=== PATIENT | female | born 2000 | race Caucasian/White ===

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

== ENCOUNTER 2018-04-01 16:56 | Emergency (ER) | payer OTHER ==
--- NOTE | 2018-04-01 17:47 | ER Document Report ---
ED Medical Screen (RME) - General Chief Complaint: Abdominal Pain Stated Complaint: ABDOMINAL PAIN Time Seen by Provider: 04/01/18 17:38 Notes: Patient is complaining of pain in the left lower quadrant of her abdomen since Tuesday evening. It radiates to the right side somewhat but primarily in the left lower quadrant. It is constant.. This pain is similar to what the patient had about a year and a half ago when she had a ruptured ovarian cyst. She has been nauseated but not vomiting. No change in bowels. No UTI symptoms. Has not had any fever. Only other symptoms is a headache for the past 2 days. Patient is an insulin-dependent diabetic for about 9 years. Hypothyroid. TRAVEL OUTSIDE OF THE U.S[place] IN LAST 30 DAYS: No - Related Data Allergies/Adverse Reactions: amoxicillin Allergy (Verified 04/01/18 16:56) azithromycin [From Zithromax] Allergy (Verified 04/01/18 16:56) clavulanic acid [From Augmentin] Allergy (Verified 04/01/18 16:56) cepfrozil Allergy (Uncoded 04/01/18 16:56) Past Medical History - Social History Chew tobacco use (# tins/day): No Frequency of alcohol use: None Drug Abuse: None Endocrine Medical History: Reports: Hx Diabetes Mellitus Type 1, Hx Hypothyroidism Renal/ Medical History: Denies: Hx Peritoneal Dialysis - Immunizations Immunizations up to date: Yes Physical Exam - Vital signs Vitals: Temp Pulse Resp BP Pulse Ox 98.6 F 85 18 139/58 H 98 04/01/18 17:02 04/01/18 17:02 04/01/18 17:02 04/01/18 17:02 04/01/18 17:02 Course - Vital Signs Vital signs: Temp Pulse Resp BP Pulse Ox 98.6 F 85 18 139/58 H 98 04/01/18 17:02 04/01/18 17:02 04/01/18 17:02 04/01/18 17:02 04/01/18 17:02
[2018-04-01 18:19] LABS: ABSOLUTE EOSINOPHILS # (AUTO) 0.1 10^3/uL (0.0-0.6); ABSOLUTE LYMPHOCYTES (AUTO) 1.4 10^3/uL (0.5-4.7); ABSOLUTE MONOCYTES (AUTO) 0.4 10^3/uL (0.1-1.4); BASOPHILS % (AUTO) 0.2 % (0-2); EOSINOPHILS % (AUTO) 1.2 % (0-6); HEMATOCRIT 38.1 % (36.0-47.0); HEMOGLOBIN 13.1 g/dL (12.0-15.5); LYMPHOCYTES % (AUTO) 24.2 % (13-45); MEAN CORPUSCULAR HEMOGLOBIN 29.1 pg (27.0-33.4); MEAN CORPUSCULAR HGB CONC 34.4 g/dL (32.0-36.0); MEAN CORPUSCULAR VOLUME 85 fl (80-97); MONOCYTES % (AUTO) 7.2 % (3-13); PLATELET COUNT 276 10^3/uL (150-450); RED CELL DISTRIBUTION WIDTH 12.8 % (11.5-14.0); SEGMENTED NEUTROPHILS % (AUTO) 67.2 % (42-78); TOTAL CELLS COUNTED % (AUTO) 100 %; WHITE BLOOD COUNT 5.9 10^3/uL (4.0-10.5)
[2018-04-01 18:39] LABS: ALANINE AMINOTRANSFERASE 26 U/L (5-35); ALBUMIN 4.3 g/dL (3.7-5.6); ALKALINE PHOSPHATASE 71 U/L (50-135); ANION GAP 6 (5-19); ASPARTATE AMINO TRANSFERASE 21 U/L (5-30); BILIRUBIN,DIRECT 0.1 mg/dL (0.0-0.4); BILIRUBIN,TOTAL 0.5 mg/dL (0.2-1.3); BLOOD UREA NITROGEN 9 mg/dL (7-20); CALCIUM 9.4 mg/dL (8.4-10.2); CARBON DIOXIDE 26 mmol/L (22-30); CHLORIDE 105 mmol/L (98-107); GLUCOSE 251 mg/dL (75-110); LIPASE 86.7 U/L (23-300); POTASSIUM 4.6 mmol/L (3.6-5.0); SODIUM 137.2 mmol/L (137-145); TOTAL PROTEIN 6.8 g/dL (6.3-8.2)
--- NOTE | 2018-04-01 19:09 | RADIOLOGY REPORT (SQ) ---
EXAM DESCRIPTION: U/S NON OB PEL TV W/DOPPLER COMPLETED DATE/TIME: 04/01/2018 6:54 pm REASON FOR STUDY: left adnexal pain COMPARISON: None. TECHNIQUE: Dynamic and static grayscale images acquired of the pelvis via transvaginal approach and recorded on PACS. Additional selected color Doppler and spectral images recorded. LIMITATIONS: None. FINDINGS: UTERUS: Contour normal. No mass. ENDOMETRIAL STRIPE: No focal or generalized thickening. No masses. CERVIX: No nabothian cysts. RIGHT OVARY AND DOPPLER: Normal size. No worrisome masses. Normal arterial vascular flow without evid ence for torsion. LEFT OVARY AND DOPPLER: Normal size. No worrisome masses. Normal arterial vascular flow without evide nce for torsion. FREE FLUID: Small amount of cul-de-sac free fluid. OTHER: No other significant finding. MEASUREMENTS: UTERUS: 6.1 x 4.1 x 3.6 cm ENDOMETRIAL STRIPE: 4 mm RIGHT OVARY: 2.3 x 2 x 1.7 cm LEFT OVARY: 3 x 1.9 x 1.9 cm IMPRESSION: Age-appropriate exam. TECHNICAL DOCUMENTATION: JOB ID: [id number] [place]-72 2010 [employer]- All Rights Reserved Rev-07/29 Reading location - IP/workstation name: [email or web address]
[2018-04-01 22:02] LABS: APPEARANCE,URINE CLOUDY; BILIRUBIN,URINE NEGATIVE (NEGATIVE); COLOR,URINE DARK YELLOW; GLUCOSE, URINE 150 mg/dL (NEGATIVE); KETONES,URINE TRACE mg/dL (NEGATIVE); LEUKOCYTE ESTERASE,URINE TRACE (NEGATIVE); NITRITE,URINE NEGATIVE (NEGATIVE); PROTEIN,URINE >=500 mg/dL (NEGATIVE); URINE SPECIFIC GRAVITY 1.038; UROBILINOGEN,URINE NEGATIVE mg/dL (<2.0)
--- NOTE | 2018-04-01 22:56 | ER Document Report ---
ED General - General Chief Complaint: Abdominal Pain Stated Complaint: ABDOMINAL PAIN Time Seen by Provider: 04/01/18 17:38 Notes: Patient is a 17-year-old female with a past medical history of ovarian cysts, dysfunctional uterine bleeding, presents with 3 days of pain to the left lower abdomen more toward the left adnexal region. Pain is described as a throbbing, aching, constant pain. Nothing improves or worsens that pain. Describes a long-standing history of similar symptoms in the past with ruptured ovarian cysts. Patient reports that she has chronic vaginal bleeding, has been bleeding continuously for the past 1 month. She does not currently follow with an DIRECTOR ONCOLOGY. Denies any fever or constitutional symptoms. No dysuria. Has a prior surgical history of a Juno fundoplication TRAVEL OUTSIDE OF THE [place] IN LAST 30 DAYS: No - Related Data Allergies/Adverse Reactions: amoxicillin Allergy (Verified 04/01/18 16:56) azithromycin [From Zithromax] Allergy (Verified 04/01/18 16:56) clavulanic acid [From Augmentin] Allergy (Verified 04/01/18 16:56) cepfrozil Allergy (Uncoded 04/01/18 16:56) Past Medical History - General Information source: Patient, Relative - Social History Smoking Status: Never Smoker Chew tobacco use (# tins/day): No Frequency of alcohol use: None Drug Abuse: None Lives with: Spouse/Significant other Family History: Reviewed & Not Pertinent Patient has suicidal ideation: No Patient has homicidal ideation: No Endocrine Medical History: Reports: Hx Diabetes Mellitus Type 1, Hx Hypothyroidism Renal/ Medical History: Denies: Hx Peritoneal Dialysis - Immunizations Immunizations up to date: Yes Review of Systems - Review of Systems Notes: Constitutional: Negative for fever. HENT: Negative for sore throat. Eyes: Negative for visual changes. Cardiovascular: Negative for chest pain. Respiratory: Negative for shortness of breath. Gastrointestinal: Positive for lower abdominal pain and nausea Genitourinary: Positive for vaginal bleeding. Musculoskeletal: Negative for back pain. Skin: Negative for rash. Neurological: Negative for headaches, weakness or numbness. 10 point ROS negative except as marked above and in HPI. Physical Exam - Vital signs Vitals: Temp Pulse Resp BP Pulse Ox 98.6 F 85 18 139/58 H 98 04/01/18 17:02 04/01/18 17:02 04/01/18 17:02 04/01/18 17:02 04/01/18 17:02 Interpretation: Normal Notes: PHYSICAL EXAMINATION: GENERAL: Well-appearing, well-nourished and in no acute distress. HEAD: Atraumatic, normocephalic. EYES: Pupils equal round and reactive to light, extraocular movements intact, sclera anicteric, conjunctiva are normal. ENT: nares patent, oropharynx clear without exudates. Moist mucous membranes. NECK: Normal range of motion, supple without lymphadenopathy LUNGS: Breath sounds clear to auscultation bilaterally and equal. No wheezes rales or rhonchi. HEART: Regular rate and rhythm without murmurs ABDOMEN: Soft, nontender, normoactive bowel sounds. No guarding, no rebound. No masses appreciated. EXTREMITIES: Normal range of motion, no pitting or edema. No cyanosis. NEUROLOGICAL: No focal neurological deficits. Moves all extremities spontaneously and on command. PSYCH: Normal mood, normal affect. SKIN: Warm, Dry, normal turgor, no rashes or lesions noted. Course - Re-evaluation Re-evalutation: 04/01/18 22:55 Presentation is most consistent with dysfunctional uterine bleeding and intermittent lower abdominal cramping in otherwise well-appearing patient. Her hemoglobin was within normal limits. She is not . No tachycardia or hypotension. Examination is otherwise unremarkable. No focal abdominal tenderness on exam. Transvaginal ultrasound unremarkable. She denies bleeding through more than 2 pads an hour at any point in time. No active bleeding at this time. At this time will discharge with return precautions and follow-up recommendations. Verbal discharge instructions given a the bedside and opportunity for questions given. Medication warnings reviewed. Patient is in agreement with this plan and has verbalized understanding of return precautions and the need for primary care follow-up in the next 24-72 hours. - Vital Signs Vital signs: Temp Pulse Resp BP Pulse Ox 98.3 F 79 18 125/66 99 04/01/18 23:19 04/01/18 23:19 04/01/18 23:19 04/01/18 23:19 04/01/18 23:19 - Laboratory Result Diagrams: 04/01/18 17:55 04/01/18 17:55 Laboratory results interpreted by me: 04/01/18 04/01/18 17:55 21:09 Glucose 251 H Urine Protein >=500 H Urine Glucose (UA) 150 H Urine Ketones TRACE H Urine Blood LARGE H Ur Leukocyte Esterase TRACE H Urine Ascorbic Acid 20 H - Diagnostic Test Radiology reviewed: Reports reviewed Discharge - Discharge Clinical Impression: Dysfunctional uterine bleeding, Lower abdominal pain Condition: Good Disposition: HOME, SELF-CARE Additional Instructions: You were seen today for dysfunctional uterine bleeding. This is when you have vaginal bleeding and abdominal cramping off of your normal menstrual cycle. You need to follow-up with DIRECTOR ONCOLOGY within the next 1-3 days. Return immediately if you worsening pain, you began bleeding through more than 2 pads per hour for more than 3 hours, you pass out, have persistent vomiting, develop a fever greater than 100.4F, or any other symptoms that are concerning to you. For your pain: Take ibuprofen 600 mg and acetaminophen 1000 mg every 6 hours together as needed for pain. Referrals: FARTUN ARECHIGA MD [ACTIVE STAFF] - Follow up tomorrow
[2018-04-01 23:20] VITALS: BP 125/66
== END 2018-04-01 23:20 | disposition home or self-care (01) ==
LOC: ER 16:56
DX: N93.8 Other specified abnormal uterine and vaginal bleeding (principal); R11.0 Nausea; R10.32 Left lower quadrant pain; E10.9 Type 1 diabetes mellitus without complications; Z87.42 Personal history of other diseases of the female genital tract; Z88.0 Allergy status to penicillin; Z88.1 Allergy status to other antibiotic agents
CPT/HCPCS: 36415; 76830; 80053; 81001; 83690; 84703; 85025; 93976; 99284

== ENCOUNTER 2019-11-01 17:39 | Emergency (ER) | payer OTHER ==
[2019-11-01 17:46] VITALS: BP 143/65
== END 2019-11-01 20:55 | disposition left against medical advice (07) ==
LOC: ER 17:39
DX: Z53.21 Procedure and treatment not carried out due to patient leaving prior to being seen by health care provider (principal); R42 Dizziness and giddiness

== ENCOUNTER 2020-01-04 15:12 | Outpatient (CLI) | payer OTHER ==
[2020-01-04] MEDS ORDERED: HYDROXYZINE PAMOATE 50 MG CAPSULE PO ONE (16:22)
[2020-01-04 16:34] LABS: UR PRO/CREAT RATIO RESULT 0.1 mg/mg (0.0-0.2); URINE CREATININE 182.1 mg/dL (16-327); URINE PROTEIN 22.9 mg/dL (<12)
[2020-01-04] MEDS ORDERED: HYDROXYZINE PAMOATE 50 MG CAPSULE ONE (16:35)
--- NOTE | 2020-01-04 16:53 | Non Stress Test Report ---
Non Stress Test Datetime Report Generated by CPN: 01/04/2020 16:52 DEMOGRAPHIC Test Number: 1 EGA NST: 34.6 INDICATION Indication for Study (NST) Other: Pre-e workup VITAL SIGNS Temperature - NST: 98.9 Pulse - NST: 72 RESP - NST: 16 NBPSYS NST: 142 NBPDIA NST: 77 MONITORING Monitor Explained: Monitor Explained; Test Explained; Patient Verbalized Understanding Time on Monitor: 01/04/2020 15:36 Time off Monitor: 01/04/2020 16:24 NST Duration: 48 NST INTERVENTIONS NST Interventions: PO Hydration Physician Notified NST: N Ashby CNM BABY A: [id number] BABY A Movement : Present Contraction Frequency : irregular FHR Baseline : 150 Accelerations : 15X15 Decelerations : None Variability : Moderate 6-25bpm NST Review: Meets Criteria for Reactive NST NST Review and Verified By : SAutry NST Results: Reactive NST COMMENTS NST Comments: provider on unit reviewing FHT strip NST REPORT Report Trigger: Send Report
[2020-01-04 18:17] LABS: CHLAM PCR NOT DETECTED (NOT DETECT)
[2020-01-05 17:21] LABS: URINE PROTEIN 10.8 mg/dL (<12)
[2020-01-05 17:25] LABS: 24 HOUR URINE PROTEIN RESULT 99 mg/day (42-225)
== END 2020-01-04 16:51 | disposition home or self-care (01) ==
LOC: LC 15:12
PROVIDERS: ATTEND Student in an Organized Health Care Education/Training Program
DX: O16.3 Unspecified maternal hypertension, third trimester (principal); O99.283 Endocrine, nutritional and metabolic diseases complicating pregnancy, third trimester; O24.013 Pre-existing type 1 diabetes mellitus, in pregnancy, third trimester; E10.9 Type 1 diabetes mellitus without complications; Z79.4 Long term (current) use of insulin; Z96.41 Presence of insulin pump (external) (internal); Z3A.34 34 weeks gestation of pregnancy; Z88.1 Allergy status to other antibiotic agents
CPT/HCPCS: 59025; 82570; 84112; 84156; 87077; 87081; 87491; 87591

== ENCOUNTER 2020-01-07 14:14 | Outpatient (CLI) | payer OTHER ==
[2020-01-07 16:20] LABS: AMORPHOUS SEDIMENT,URINE TRACE /HPF; APPEARANCE,URINE CLOUDY; BILIRUBIN,URINE NEGATIVE (NEGATIVE); COLOR,URINE AMBER; GLUCOSE, URINE NEGATIVE (NEGATIVE); KETONES,URINE NEGATIVE (NEGATIVE); LEUKOCYTE ESTERASE,URINE MODERATE (NEGATIVE); NITRITE,URINE NEGATIVE (NEGATIVE); PROTEIN,URINE 100 mg/dL (NEGATIVE); UROBILINOGEN,URINE NEGATIVE mg/dL (<2.0)
[2020-01-07 16:25] LABS: ALBUMIN 2.9 g/dL (3.5-5.0); ALKALINE PHOSPHATASE 152 U/L (38-126); ANION GAP 9 (5-19); ASPARTATE AMINO TRANSFERASE 17 U/L (14-36); BILIRUBIN,DIRECT 0.3 mg/dL (0.0-0.4); BILIRUBIN,TOTAL 0.5 mg/dL (0.2-1.3); BLOOD UREA NITROGEN 10 mg/dL (7-20); CARBON DIOXIDE 19 mmol/L (22-30); CHLORIDE 104 mmol/L (98-107); GLUCOSE 140 mg/dL (75-110); POTASSIUM 4.5 mmol/L (3.6-5.0); TOTAL PROTEIN 5.3 g/dL (6.3-8.2); URIC ACID 5.8 mg/dL (2.5-6.2)
[2020-01-07 16:33] LABS: URINE CREATININE 224.6 mg/dL (16-327)
[2020-01-07 16:36] LABS: URINE AMPHETAMINES SCREEN NEGATIVE; URINE BARBITURATES SCREEN NEGATIVE; URINE BENZODIAZEPINES SCREEN NEGATIVE; URINE COCAINE SCREEN NEGATIVE; URINE MARIJUANA (THC) SCREEN NEGATIVE; URINE METHADONE SCREEN NEGATIVE; URINE PHENCYCLIDINE SCREEN NEGATIVE
[2020-01-07 16:41] LABS: UR PRO/CREAT RATIO RESULT 1.4 mg/mg (0.0-0.2); URINE PROTEIN 306.3 mg/dL (<12)
== END 2020-01-07 17:22 | disposition home or self-care (01) ==
LOC: LC 14:14
PROVIDERS: ATTEND Obstetrics & Gynecology
DX: O13.3 Gestational [pregnancy-induced] hypertension without significant proteinuria, third trimester (principal); O24.013 Pre-existing type 1 diabetes mellitus, in pregnancy, third trimester; E10.9 Type 1 diabetes mellitus without complications; O99.283 Endocrine, nutritional and metabolic diseases complicating pregnancy, third trimester; E03.9 Hypothyroidism, unspecified; Z3A.35 35 weeks gestation of pregnancy; Z88.1 Allergy status to other antibiotic agents; Z91.048 Other nonmedicinal substance allergy status; Z79.4 Long term (current) use of insulin; Z02.83 Encounter for blood-alcohol and blood-drug test
CPT/HCPCS: 36415; 59025; 80053; 80307; 81001; 82570; 84156; 84550

== ENCOUNTER 2020-01-10 10:43 | Outpatient (CLI) | payer OTHER ==
--- NOTE | 2020-01-10 10:57 | Non Stress Test Report ---
Non Stress Test Datetime Report Generated by CPN: 01/10/2020 10:57 DEMOGRAPHIC EGA NST: 35.2 MONITORING Monitor Explained: Monitor Explained; Test Explained; Patient Verbalized Understanding Time on Monitor: 01/07/2020 14:25 Time off Monitor: 01/07/2020 14:45 NST Duration: 20 NST INTERVENTIONS NST Interventions: PO Hydration; Reposition Patient Physician Notified NST: Dr. Juan M BABY A: [id number] BABY A Movement : Present Contraction Frequency : Uterine irritability FHR Baseline : 135 Accelerations : 15X15 Decelerations : None Variability : Moderate 6-25bpm NST Review: Questionable if Meets Criteria for Reactive NST NST Review and Verified By : GALO Ruiz Results: Reactive NST REPORT Report Trigger: Send Report
[2020-01-10 13:07] LABS: ABSOLUTE LYMPHOCYTES (AUTO) 1.3 10^3/uL (0.5-4.7); ABSOLUTE MONOCYTES (AUTO) 0.5 10^3/uL (0.1-1.4); ABSOLUTE NEUT (AUTO) 7.4 10^3/uL (1.7-8.2); BASOPHILS % (AUTO) 0.3 % (0-2); EOSINOPHILS % (AUTO) 0.1 % (0-6); HEMATOCRIT 32.1 % (36.0-47.0); HEMOGLOBIN 10.7 g/dL (12.0-15.5); LYMPHOCYTES % (AUTO) 14.1 % (13-45); MEAN CORPUSCULAR HEMOGLOBIN 25.9 pg (27.0-33.4); MEAN CORPUSCULAR HGB CONC 33.5 g/dL (32.0-36.0); MEAN CORPUSCULAR VOLUME 77 fl (80-97); MONOCYTES % (AUTO) 5.7 % (3-13); PLATELET COUNT 189 10^3/uL (150-450); RED BLOOD COUNT 4.15 10^6/uL (3.72-5.28); RED CELL DISTRIBUTION WIDTH 14.4 % (11.5-14.0); SEGMENTED NEUTROPHILS % (AUTO) 79.8 % (42-78); TOTAL CELLS COUNTED % (AUTO) 100 %; WHITE BLOOD COUNT 9.2 10^3/uL (4.0-10.5)
[2020-01-10 13:24] LABS: ALBUMIN 2.6 g/dL (3.5-5.0); ALKALINE PHOSPHATASE 158 U/L (38-126); ANION GAP 8 (5-19); ASPARTATE AMINO TRANSFERASE 17 U/L (14-36); BILIRUBIN,DIRECT 0.1 mg/dL (0.0-0.4); BILIRUBIN,TOTAL 0.5 mg/dL (0.2-1.3); BLOOD UREA NITROGEN 11 mg/dL (7-20); CALCIUM 8.8 mg/dL (8.4-10.2); CARBON DIOXIDE 19 mmol/L (22-30); CHLORIDE 105 mmol/L (98-107); GLUCOSE 268 mg/dL (75-110); TOTAL PROTEIN 5.1 g/dL (6.3-8.2); URIC ACID 6.2 mg/dL (2.5-6.2)
--- NOTE | 2020-01-10 14:46 | Non Stress Test Report ---
Non Stress Test Datetime Report Generated by CPN: 01/10/2020 14:46 DEMOGRAPHIC Test Number: 1 EGA NST: 35.5 INDICATION Indication for Study (NST) Other: Repeat NST and PRE E eval VITAL SIGNS Temperature - NST: 98.5 MONITORING Monitor Explained: Monitor Explained; Test Explained; Patient Verbalized Understanding Time on Monitor: 01/10/2020 10:59 Time off Monitor: 01/10/2020 13:42 NST Duration: 163 NST INTERVENTIONS NST Interventions: PO Hydration; Reposition Patient Physician Notified NST: P. Cardozo CNM BABY A Movement : Present Contraction Frequency : Irregular FHR Baseline : 135 Accelerations : 15X15 Decelerations : None Variability : Moderate 6-25bpm NST Review: Meets Criteria for Reactive NST NST Review and Verified By : Arlene Malhotra RN NSKelly Results: Reactive NST REPORT Report Trigger: Send Report
== END 2020-01-10 14:51 | disposition home or self-care (01) ==
LOC: LC 10:43
PROVIDERS: ATTEND Obstetrics & Gynecology Gynecology
DX: O13.3 Gestational [pregnancy-induced] hypertension without significant proteinuria, third trimester (principal); O99.283 Endocrine, nutritional and metabolic diseases complicating pregnancy, third trimester; E03.9 Hypothyroidism, unspecified; O24.013 Pre-existing type 1 diabetes mellitus, in pregnancy, third trimester; E10.9 Type 1 diabetes mellitus without complications; Z96.41 Presence of insulin pump (external) (internal); Z3A.35 35 weeks gestation of pregnancy; Z88.1 Allergy status to other antibiotic agents; Z88.8 Allergy status to other drugs, medicaments and biological substances
CPT/HCPCS: 36415; 59025; 80053; 84550; 85025

== ENCOUNTER 2020-01-12 20:41 | Outpatient (CLI) | payer OTHER ==
[2020-01-12 21:58] LABS: ABSOLUTE EOSINOPHILS # (AUTO) 0.1 10^3/uL (0.0-0.6); ABSOLUTE MONOCYTES (AUTO) 0.7 10^3/uL (0.1-1.4); ABSOLUTE NEUT (AUTO) 7.7 10^3/uL (1.7-8.2); BASOPHILS % (AUTO) 0.3 % (0-2); EOSINOPHILS % (AUTO) 0.7 % (0-6); HEMATOCRIT 32.9 % (36.0-47.0); HEMOGLOBIN 11.1 g/dL (12.0-15.5); LYMPHOCYTES % (AUTO) 19.1 % (13-45); MEAN CORPUSCULAR HEMOGLOBIN 25.9 pg (27.0-33.4); MEAN CORPUSCULAR HGB CONC 33.8 g/dL (32.0-36.0); MEAN CORPUSCULAR VOLUME 77 fl (80-97); MONOCYTES % (AUTO) 6.7 % (3-13); PLATELET COUNT 173 10^3/uL (150-450); RED BLOOD COUNT 4.29 10^6/uL (3.72-5.28); SEGMENTED NEUTROPHILS % (AUTO) 73.2 % (42-78); TOTAL CELLS COUNTED % (AUTO) 100 %; WHITE BLOOD COUNT 10.5 10^3/uL (4.0-10.5)
[2020-01-12 22:00] LABS: APPEARANCE,URINE SLIGHTLY-CLOUDY; BILIRUBIN,URINE NEGATIVE (NEGATIVE); COLOR,URINE AMBER; GLUCOSE, URINE NEGATIVE (NEGATIVE); KETONES,URINE NEGATIVE (NEGATIVE); LEUKOCYTE ESTERASE,URINE NEGATIVE (NEGATIVE); NITRITE,URINE NEGATIVE (NEGATIVE); PROTEIN,URINE >=500 mg/dL (NEGATIVE); URINE SPECIFIC GRAVITY 1.032; UROBILINOGEN,URINE NEGATIVE mg/dL (<2.0)
[2020-01-12 22:12] LABS: ALBUMIN 2.6 g/dL (3.5-5.0); ALKALINE PHOSPHATASE 157 U/L (38-126); ANION GAP 7 (5-19); ASPARTATE AMINO TRANSFERASE 18 U/L (14-36); BILIRUBIN,TOTAL 0.4 mg/dL (0.2-1.3); BLOOD UREA NITROGEN 18 mg/dL (7-20); CALCIUM 8.8 mg/dL (8.4-10.2); CARBON DIOXIDE 18 mmol/L (22-30); CHLORIDE 107 mmol/L (98-107); GLUCOSE 162 mg/dL (75-110); POTASSIUM 4.3 mmol/L (3.6-5.0); URIC ACID 6.4 mg/dL (2.5-6.2)
[2020-01-12 22:14] LABS: URINE AMPHETAMINES SCREEN NEGATIVE; URINE BARBITURATES SCREEN NEGATIVE; URINE BENZODIAZEPINES SCREEN NEGATIVE; URINE COCAINE SCREEN NEGATIVE; URINE MARIJUANA (THC) SCREEN NEGATIVE; URINE METHADONE SCREEN NEGATIVE; URINE PHENCYCLIDINE SCREEN NEGATIVE
== END 2020-01-12 22:46 | disposition home or self-care (01) ==
LOC: LC 20:41
PROVIDERS: ATTEND Obstetrics & Gynecology
DX: O14.93 Unspecified pre-eclampsia, third trimester (principal); O99.283 Endocrine, nutritional and metabolic diseases complicating pregnancy, third trimester; O99.820 Streptococcus B carrier state complicating pregnancy; E03.8 Other specified hypothyroidism; O24.913 Unspecified diabetes mellitus in pregnancy, third trimester; Z96.41 Presence of insulin pump (external) (internal); Z3A.35 35 weeks gestation of pregnancy
CPT/HCPCS: 36415; 59025; 80053; 80307; 81005; 83615; 84550; 85025; 86592; 86850; 86870; 86900; 86901; 94760

== ENCOUNTER 2020-01-14 14:04 | Inpatient (IN) | payer OTHER ==
--- NOTE | 2020-01-14 14:07 | Non Stress Test Report ---
Non Stress Test Datetime Report Generated by CPN: 01/14/2020 14:06 DEMOGRAPHIC EGA NST: 36.0 INDICATION Indication for Study (NST) Other: LC URINE RESULTS Urine Protein, NST: Positive Urine Ketones - NST: Negative Urine Glucose - NST: Negative Urine Blood - NST: Negative MONITORING Monitor Explained: Monitor Explained; Test Explained; Patient Verbalized Understanding Time on Monitor: 01/12/2020 22:03 Time off Monitor: 01/12/2020 22:33 NST Duration: 30 NST INTERVENTIONS NST Interventions: PO Hydration; Reposition Patient Physician Notified NST: Oquendo BABY A: [id number] BABY A Movement : Present Contraction Frequency : OCC FHR Baseline : 145 Accelerations : 15X15 Decelerations : None Variability : Moderate 6-25bpm NST Review: Meets Criteria for Reactive NST NST Review and Verified By : Gagan Fontana RN NST Results: Reactive NST REPORT Report Trigger: Send Report
[2020-01-14] MEDS ORDERED: HYDRALAZINE HCL INJ/PF 20 MG/1 ML SDV ONE (14:29)
[2020-01-14] MEDS ORDERED: HYDRALAZINE HCL INJ/PF 20 MG/1 ML SDV IV ONE (14:33)
[2020-01-14] MEDS ORDERED: BETAMET ACET/BETAMET NA INJ 6 MG/1 ML ONE (14:36)
[2020-01-14] MEDS ORDERED: BETAMET ACET/BETAMET NA INJ 6 MG/1 ML IM ONE (14:44)
[2020-01-14] MEDS ORDERED: RINGERS SOLUTION,LACTATED 1,000 ML IV PRN ×2 (14:45→18:42)
[2020-01-14] MEDS ORDERED: MAGNESIUM SULFATE 4 GM/100 ML RTUPB IV ONE ×2 (15:37→15:39)
[2020-01-14] MEDS ORDERED: MAGNESIUM SULFATE 20 GM/500 ML RTUINJ IV ONE (15:37)
[2020-01-14] MEDS ORDERED: LABETALOL HCL INJ 20 MG/4 ML DISP.SYRIN IV ONE ×4 (15:53→16:43)
[2020-01-14 16:10] LABS: ABSOLUTE LYMPHOCYTES (AUTO) 1.7 10^3/uL (0.5-4.7); ABSOLUTE MONOCYTES (AUTO) 0.6 10^3/uL (0.1-1.4); ABSOLUTE NEUT (AUTO) 7.5 10^3/uL (1.7-8.2); BASOPHILS % (AUTO) 0.1 % (0-2); EOSINOPHILS % (AUTO) 0.5 % (0-6); HEMATOCRIT 35.3 % (36.0-47.0); HEMOGLOBIN 11.7 g/dL (12.0-15.5); LYMPHOCYTES % (AUTO) 17.1 % (13-45); MEAN CORPUSCULAR HEMOGLOBIN 25.6 pg (27.0-33.4); MEAN CORPUSCULAR HGB CONC 33.1 g/dL (32.0-36.0); MEAN CORPUSCULAR VOLUME 77 fl (80-97); MONOCYTES % (AUTO) 5.9 % (3-13); PLATELET COUNT 164 10^3/uL (150-450); RED BLOOD COUNT 4.58 10^6/uL (3.72-5.28); RED CELL DISTRIBUTION WIDTH 14.8 % (11.5-14.0); SEGMENTED NEUTROPHILS % (AUTO) 76.4 % (42-78); TOTAL CELLS COUNTED % (AUTO) 100 %; WHITE BLOOD COUNT 9.9 10^3/uL (4.0-10.5)
[2020-01-14] MEDS: MAGNESIUM SULFATE 20 GM/500 ML RTUINJ IV PRN (16:13)
--- NOTE | 2020-01-14 16:13 | Admission Physical ---
Datetime Report Generated by CPN: 01/14/2020 16:13 CURRENT ADMISSION Chief Complaint: Sent from OB Office for Evaluation and Treatment - Please Specify Chief Complaint Other: sent by [facility] for severe range BP Indication for Induction: Eclampsia - Severe Admit Impression : , Intrauterine Admit Plan: Admit to Unit; Initiate Labor Induction Protocol ALLERGIES Medication Allergies: Yes Medication Allergies: clavulanic acid/MO (01/14/2020); cefprozil/MO (01/14/2020); azithromycin (01/14/2020); amoxicillin/MO (01/14/2020) Latex: No Latex Allergies Food Allergies: none Environmental Allergies: none OBSTETRICAL HISTORY EDC: 02/09/2020 00:00 : 1 Para: 0 Term: 0 : 0 SAB: 0 IAB: 0 Ectopic: 0 Livin Cesareans: 0 VBACs: 0 Multiple Births: 0 Rh Sensitization: No Incompetent Cervix: No ROMIE: No Infertility: No ART Treatment: No Uterine Anomaly: No IUGR: No Hx Previous C/S: No Macrosomia: No Hx Loss/Stillborn: No PIH: Yes Hx : No Placenta Previa/Abruption: No Depression/PP Depression: No Post Hemorrhage: No Current Procedures: Ultrasound; NST Obstetrical History Comments: G1- current- mild pre-E, poly SEE RECORDS Alcohol: No Marijuana : No Cocaine: No Other Illicit Drugs: No Cigarettes: Never Smoker. 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: No Heart Disease: No Hosp/Surgery: Yes Autoimmune Disorder: No Anesthetic Complications: No Kidney Disease: No Abnormal Pap Smear: No Neuro/Epilepsy: No Psychiatric Disorders: No Other Medical Diseases: No Hepatitis/Liver Disease: No Significant Family History: No Varicosities/Phlebitis: No Trauma/Violence : No Thyroid Dysfunction: Yes Medical History Comments: Type 1 DM dx 2008- has insulin pump and glucose monitor, hypothyroidism, fundoplication - 1999, wisdom teeth removal INFECTIOUS HISTORY Gonorrhea: No Genital Herpes: No Chlamydia: No Tuberculosis: No Syphilis: No Hepatitis: No HIV/AIDS Exposure: No Rash or Viral Illness: No HPV: No PHYSICAL EXAM General: Abnormal HEENT: Normal Neurologic: Normal Thyroid: Deferred Heart: Normal Lungs: Normal Breast: Deferred Back: Normal Abdomen: Normal Genitourinary Exam: Abnormal Extremities: Abnormal DTRs: Abnormal Physical Exam Comments: severe edema bilateral arms and legs. edema on mons with blistering. DTRs brisk Vital Signs: Reviewed VAGINAL EXAM Dilatation: 0 Effacement: 0 Station: oop Contraction Comments: irritability MEMBRANES Pooling: Negative FETUS A EGA: 36.2 Monitoring: External US FHR- Baseline: 140 Variability: Minimal - Undetectable to <=5bpm Accelerations: 15X15 Decelerations: None FHR Category: Category I Estimated Weight (gm): 3700 last week Presentation: Vertex Admit Comment: at 36w2d with severe range BP, known pre-eclampsia. also complicated by type 1 diabetes, has insulin pump with basal rate of 60units, hypothyroidism on 50mcg synthroid. Rh negative with pos antibody screen. echo showed heart abnomalities-discussed with FILM REPLACEMENT ORDERER. discussed plan of care with Dr Benavides and magnesium started. P: await labs for now. continue antihypertensives as needed. PLANS FOR LABOR AND DELIVERY Labor and Delivery: None Pain Management: Epidural Feeding Preference: Breast Benefit of Breast Feed Discussed: Yes Circumcision: N/A INFORMED CONSENT Informed Consent Obtained: Vaginal Delivery; Induction of Labor Assignment: Jose Juan Benavides MD Signature: with User ID: [email or web address] : with User ID: [email or web address]
[2020-01-14] MEDS ORDERED: NORMAL SALINE 250 ML IV PRN ×2 (16:20)
[2020-01-14] MEDS ORDERED: DEXTROSE 5%-LACTATED RINGERS 1,000 ML IV PRN (16:23)
[2020-01-14 16:28] LABS: ALBUMIN 2.7 g/dL (3.5-5.0); ALKALINE PHOSPHATASE 198 U/L (38-126); ANION GAP 7 (5-19); ASPARTATE AMINO TRANSFERASE 21 U/L (14-36); BILIRUBIN,DIRECT 0.2 mg/dL (0.0-0.4); BILIRUBIN,TOTAL 0.7 mg/dL (0.2-1.3); BLOOD UREA NITROGEN 14 mg/dL (7-20); CALCIUM 8.8 mg/dL (8.4-10.2); CARBON DIOXIDE 18 mmol/L (22-30); CHLORIDE 109 mmol/L (98-107); GLUCOSE 92 mg/dL (75-110); POTASSIUM 4.4 mmol/L (3.6-5.0); TOTAL PROTEIN 5.2 g/dL (6.3-8.2); URIC ACID 7.1 mg/dL (2.5-6.2)
[2020-01-14] MEDS ORDERED: FLUCONAZOLE 100 MG TABLET PO ONE (16:41)
[2020-01-14] MEDS ORDERED: FLUCONAZOLE 100 MG TABLET ONE (16:44)
[2020-01-14 17:01] LABS: APPEARANCE,URINE SLIGHTLY-CLOUDY; BILIRUBIN,URINE NEGATIVE (NEGATIVE); COLOR,URINE AMBER; GLUCOSE, URINE NEGATIVE (NEGATIVE); KETONES,URINE NEGATIVE (NEGATIVE); LEUKOCYTE ESTERASE,URINE NEGATIVE (NEGATIVE); NITRITE,URINE NEGATIVE (NEGATIVE); PROTEIN,URINE >=500 mg/dL (NEGATIVE); URINE SPECIFIC GRAVITY 1.026
[2020-01-14 17:18] LABS: URINE AMPHETAMINES SCREEN NEGATIVE; URINE BARBITURATES SCREEN NEGATIVE; URINE BENZODIAZEPINES SCREEN NEGATIVE; URINE COCAINE SCREEN NEGATIVE; URINE MARIJUANA (THC) SCREEN NEGATIVE; URINE METHADONE SCREEN NEGATIVE; URINE PHENCYCLIDINE SCREEN NEGATIVE
[2020-01-14] MEDS ORDERED: CEFAZOLIN 2 GM/D5W RTU 0 GM/0 ML RTUPB IV ONE (17:23)
[2020-01-14] MEDS ORDERED: CITRIC ACID/SODIUM CITRATE ORAL SOLN 15 ML UDCUP ONE (17:23)
[2020-01-14] MEDS ORDERED: VANCOMYCIN HCL INJ 1000 MG VIAL IV ONE (17:24)
[2020-01-14] MEDS ORDERED: VANCOMYCIN HCL INJ 1000 MG VIAL ONE (17:25)
[2020-01-14] MEDS ORDERED: CITRIC ACID/SODIUM CITRATE ORAL SOLN 15 ML UDCUP PO ONE (17:25)
[2020-01-14] MEDS ORDERED: PHENYLEPHRINE HCL INJ/PF 10 MG/1 ML SDV ONE (17:41)
[2020-01-14] MEDS ORDERED: ONDANSETRON HCL INJ/PF 4 MG/2 ML SDV ONE ×2 (17:41→19:35)
[2020-01-14] MEDS ORDERED: OXYTOCIN 10 UNIT/ML VIAL ONE (17:41)
[2020-01-14] MEDS ORDERED: MIDAZOLAM 2 MG/2 ML INJ ONE (18:31)
[2020-01-14] MEDS ORDERED: MEASLES,MUMPS&RUBELLA VACC/PF 0.5 ML VIAL SUBCUT PRN (18:42)
[2020-01-14] MEDS ORDERED: SIMETHICONE 80 MG TAB.CHEW PO PRN (18:42)
[2020-01-14] MEDS ORDERED: DIPH/PERTUSS(ACELL)/TETANUS VAC/PF 0.5 ML SYR (>=10YO) IM PRN (18:42)
[2020-01-14] MEDS ORDERED: OXYTOCIN/0.9 % SODIUM CHLORIDE 30 UNIT/500 ML RTUINJ IV PRN (18:42)
[2020-01-14] MEDS ORDERED: MORPHINE SULFATE 10 MG/ML INJ IM PRN (18:42)
[2020-01-14] MEDS ORDERED: PROMETHAZINE HCL INJ 25 MG/1 ML VIAL IV PRN (18:42)
[2020-01-14] MEDS ORDERED: ACETAMINOPHEN 325 MG TABLET PO PRN (18:42)
[2020-01-14] MEDS ORDERED: ACETAMINOPHEN 1,000 MG/100 ML RTUPB IV PRN (18:42)
--- NOTE | 2020-01-14 18:42 | Operative Report ---
Operative Report DATE OF SURGERY: 01/14/20 PREOPERATIVE DIAGNOSIS: IUP at 36 and 2 severe preeclampsia POSTOPERATIVE DIAGNOSIS: Same OPERATION: Primary low transverse delivery of viable female SURGEON: COLBY MCLAUGHLIN ANESTHESIA: Spinal TISSUE REMOVED OR ALTERED: Placenta ESTIMATED BLOOD LOSS: Approximately 1000 cc PROCEDURE: The patient was taken to the operating room where spinal anesthesia was obtained and found to be adequate. She was then prepped and draped in the normal sterile fashion and placed in the dorsal supine position with a leftward tilt. A Pfannenstiel skin incision was then made and carried through to the underlying layers of the fascia with the scalpel. The fascia was incised in the midline and the incision extended laterally with the Khan scissors. The superior aspect of the fascial incision was then grasped with Aisha clamps elevated and the underlying rectus muscles dissected off bluntly. Attention was then turned to the inferior aspect of the fascial incision which in a similar fashion was grasped, tented up with Emelia clamps, and the rectus muscles dissected off bluntly. The rectus muscles were then in the midline and the peritoneum at the amount identified and entered bluntly. The peritoneal incision was then extended superiorly and inferiorly with good visualization of the bladder. [The bladder blade was inserted and the vesicouterine peritoneum identified grasped with Israeli pickups and entered sharply with the Metzenbaum scissors. His incision was then extended laterally with the Metzenbaum scissors and a bladder flap created digitally. The bladder blade was then reinserted and the lower uterine segment incised in a transverse fashion with the scalpel. The uterine incision was then extended bluntly. The bladder blade was removed and the infant's head was delivered from cephalic presentation atraumatically. The nose and mouth were suctioned and the cord doubly clamped and cut. And the was handed off to waiting pediatricians. The placenta was then delivered manully and the uterus exteriorized and cleared of all clots and debris. The uterine incision was then repaired with 1-0 Vicryl in a running locked fashion. A second layer of the same suture was used to obtain hemostasis via imbrication of the initial layer. The uterus was returned to the patient's abdomen. The gutters were cleared of all clots and debris. All operative sites were noted to be hemostatic. The fascia was reapproximated with 0 Vicryl in a running fashion from each lateral edge to the midline. The patient tolerated the procedure well. Sponge lap needle and instrument counts are correct -2. 2 g of Ancef were given prior to skin incision. The patient was taken to the recovery area awake and in stable condition.
--- NOTE | 2020-01-14 18:45 | PDOC DELIVERY SUMMARY ---
Delivery Summary - Maternal Risk Factors: Gestational Diabetes, Pre-Eclampsia Ruptured Membranes: AROM Fluids: Clear, Poly Hydramnios - Delivery Labor: Not In Labor Presentation: Vertex Heart Rate Monitoring: Done Pre-Operatively, Externally Support Person Present: Yes Location: OR : Primary Placenta: Within Normal Limits Number of Vessels (Cord): 3 Nuchal Cord: Yes - Medications Type of Anesthesia:: Spinal
[2020-01-14] MEDS ORDERED: OXYTOCIN/0.9 % SODIUM CHLORIDE 30 UNIT/500 ML RTUINJ ONE (18:56)
[2020-01-14] MEDS ORDERED: MISOPROSTOL 0.2 MG TABLET ONE (18:56)
[2020-01-14] MEDS ORDERED: MEPERIDINE HCL/PF INJ 25 MG/1 ML DISP.SYRIN ONE (19:35)
[2020-01-14] MEDS ORDERED: OXYCODONE-ACETAMINOPHEN 5-325 MG TABLET ONE (20:20)
[2020-01-14] MEDS ORDERED: ACETAMINOPHEN 1,000 MG/100 ML RTUPB IV ONE (20:20)
[2020-01-14] MEDS: OXYCODONE-ACETAMINOPHEN 5-325 MG TABLET PO PRN (20:22)
[2020-01-14] MEDS ORDERED: LABETALOL HCL 200 MG TABLET ONE (21:53)
[2020-01-14] MEDS ORDERED: KETOROLAC TROMETHAMINE INJ/PF 30 MG/1 ML SDV ONE (21:54)
[2020-01-14] MEDS: LABETALOL HCL 200 MG TABLET PO SCH (21:57)
[2020-01-14] MEDS: KETOROLAC TROMETHAMINE INJ/PF 30 MG/1 ML SDV IV SCH (21:58)
[2020-01-15] MEDS ORDERED: DIPHENHYDRAMINE HCL 50 MG/ML VIAL ONE (00:36)
[2020-01-15] MEDS ORDERED: FUROSEMIDE INJ/PF 40 MG/4 ML SDV ONE (00:36)
[2020-01-15] MEDS ORDERED: FUROSEMIDE INJ/PF 100 MG/10 ML SDV IV ONE (00:59)
[2020-01-15] MEDS ORDERED: DIPHENHYDRAMINE HCL 50 MG/ML VIAL IV ONE (00:59)
[2020-01-15] MEDS ORDERED: MAGNESIUM SULFATE 20 GM/500 ML RTUINJ IV ONE ×2 (02:50→12:55)
[2020-01-15] MEDS: MAGNESIUM SULFATE 20 GM/500 ML RTUINJ IV PRN ×2 (02:55→12:56)
[2020-01-15] MEDS ORDERED: KETOROLAC TROMETHAMINE INJ/PF 30 MG/1 ML SDV ONE ×2 (05:15→14:01)
[2020-01-15] MEDS ORDERED: LEVOTHYROXINE SODIUM 0.05 MG TABLET ONE (05:15)
[2020-01-15] MEDS ORDERED: OXYCODONE-ACETAMINOPHEN 5-325 MG TABLET ONE ×2 (05:16→10:54)
[2020-01-15] MEDS ORDERED: SIMETHICONE 80 MG TAB.CHEW ONE (05:36)
[2020-01-15] MEDS: KETOROLAC TROMETHAMINE INJ/PF 30 MG/1 ML SDV IV SCH ×2 (06:16→14:06)
[2020-01-15] MEDS: LEVOTHYROXINE SODIUM 0.05 MG TABLET PO SCH (06:17)
[2020-01-15] MEDS: IBUPROFEN 800 MG TABLET PO SCH ×3 (07:43→18:19)
--- NOTE | 2020-01-15 07:49 | Delivery Summary ---
Del Sum A-C Datetime Report Generated by CPN: 01/15/2020 07:49 DELIVERY PERSONNEL DELIVERY PERSONNEL: [id number] Delivery Doctor:: Jose Juan Benavides MD APPRENTICE PAINTER BRUSH:: Daren Pacheco CRNA Management Engineer:: Kalina Owen RN Neonatal Nurse Practitioner:: CODY Sanchez Nursery Nurse:: TENZIN Loo Team Leader/KNIT GOODS PRESS HAND: Marianela Barkley CST Team Leader/KNIT GOODS PRESS HAND: gNa Santos CST Additional Personnel: : Katherine Mohr RN MATERNAL INFORMATION Delivery Anesthesia: Spinal Medications After Delivery: Pitocin 30 Units in 500ml NS/D5W Meds After Delivery Comment: x2 bags Delivery QBL: 600 Maternal Complications: Other Complication Details: severe pre-e type 1 diabetes on insulin pump LABOR SUMMARY EDC: 02/09/2020 00:00 No. Babies in Womb: 1 Attempted: No Labor Anesthesia: None LABOR INFORMATION Reason for Induction: Not Applicable Oxytocin: N/A Group B Beta Strep: 1 GROUP B BETA HEMOLYTIC STREPTOCOCCUS RECOVERED Penicillin and ampicillin are drugs of choice for treatment of beta-hemolytic streptococcal infections. Susceptibility testing of penicillins and other beta-lactam agents approved by the FDA for treatment of beta-hemolytic streptococcal infections need not be performed routinely because nonsusceptible isolates are extremely rare in any beta-hemolytic streptococcus and have not been reported for Streptococcus pyogenes (group A). (CLSI) Antibiotics # of Doses: 1 Name of Antibiotic Given: Vanc Steroids Given: Partial Course Reason Steroids Not Administered: Imminent Delivery MEMBRANES Membranes Rupture Method: Spontaneous Rupture of Membranes: 01/14/2020 18:18 Length of Rupture (hr): 0.02 Amniotic Fluid Color: Clear Amniotic Fluid Amount: Copious Amniotic Fluid Odor: Normal STAGES OF LABOR Stage 3 hr: 0 Stage 3 min: 1 VAGINAL DELIVERY Episiotomy: None Laceration #1: None Laceration Extension #1: N/A Sponge Count Correct: N/A Sharps Count Correct: N/A CSECTION DELIVERY Primary Indication: Severe Pre-e, Unfavorable Cervix CSection Urgency: Non-Scheduled CSection Incidence: Primary Labor: No Labor Elective: Nonelective CSection Incision: Lower Uterine Transverse BABY A INFORMATION Infant Delivery Date/Time: 01/14/2020 18:19 Method of Delivery: Nurse Controlled Delivery: No Born in Route : No : N/A Forceps: N/A Vacuum Extraction: N/A Shoulder Dystocia : No PRESENTATION/POSITION BABY A Presentation: Cephalic Cephalic Presentation: Vertex Breech Presentation: N/A PLACENTA INFORMATION BABY A Placenta Delivery Time : 01/14/2020 18:20 Placenta Method of Delivery: Manual Removal Placenta Status: Delivered SCORES BABY A Heart Rate 1 min: Slow, Below 100 bpm Resp Effort 1 min: Slow, Irregular Reflex Irritability 1 min: Cough or Sneeze or Pulls Away Muscle Tone 1 min: Some Flexion of Extremities Color 1 min: Blue/Pale Resuscitation Effort 1 min: Tactile Stimulation; Oxygen; PPV/NCPAP SCORE 1 MIN: 5 Heart Rate 5 min: >100 bpm Resp Effort 5 min: Slow, Irregular Reflex Irritability 5 min: Cough or Sneeze or Pulls Away Muscle Tone 5 min: Active Motion Color 5 min: Blue/Pale Resuscitation Effort 5 min: Tactile Stimulation; Oxygen; PPV/NCPAP SCORE 5 MIN: 7 INFANT INFORMATION BABY A Gestational Age at Delivery: 36.2 Gestational Status: Late - 34- 36.6 Weeks Infant Outcome : Liveborn Condition : Stable Sex: Female IDENTIFICATION BABY A Infant Verification Date/Time: 01/14/2020 18:20 ID Band Number: [id number] Mother's Name Verified: Yes Infant RN Verifying : C Shelbina RN/B Baidy RN WEIGHT/LENGTH BABY A Infant Birthweight (gm): 4219 Infant Weight (lb): 9 Weight (oz): 5 Length (in): 20.00 Infant Length (cm): 50.80 CORD INFORMATION BABY A No. Cord Vessels: 3 Nuchal Cord : N/A Cord Blood Taken: Yes-For Eval (Mom's Blood Type - or O+) ASSESSMENT BABY A Skin to Skin: No BABY B INFORMATION : N/A SIGNATURES : I was personally available for consultation and serving as supervising physician for the MLP.
--- NOTE | 2020-01-15 07:49 | Birth Certificate Data ---
Cert Data Datetime Report Generated by CPN: 01/15/2020 07:49 CERTIFICATE DATA Delivery Provider: Jose Juan Benavides MD (01/14/2020 17:44:Katherine Mohr RN) 47a. Care: Yes (01/04/2020 15:05:Miguelina Vanegas RN) 47b. Date of First Visit: 07/26/2019 00:00 (01/04/2020 15:05:Kalina Owen RN) 47c. Date of Last Visit: 01/14/2020 00:00 (01/04/2020 15:05:Kalina Owen RN) 47d. Number of Visits: 12 (01/04/2020 15:05:Kalina Owen RN) 48a. Number of Prev Live Births: 0 (01/04/2020 15:05:Kalina Owen RN) 48b. Now Livin (01/04/2020 15:05:Kalina Owen RN) 48c. Live Births Now : 0 (01/04/2020 15:05:QS system process) 48e. Losses: 0 (01/04/2020 15:05:Kalina Owen RN) RISK FACTORS IN THIS 49a. Diabetes: Yes (01/04/2020 15:05:Kalina Owen RN) Type of Diabetes: Type I - IDDM (01/04/2020 15:05:Kalina Owen RN) 49b. Hypertension: Yes (01/04/2020 15:05:Kalina Owen RN) Type of Hypertension: Gestational (PIH, Pre-eclampsia) (01/04/2020 15:05:Miguelina Vanegas RN) 49c. Previous Births: 0 (01/04/2020 15:05:Kalina Owen RN) 49d. Stillborns: No (01/04/2020 15:05:Kalina Owen RN) 49d. IUGR: No (01/04/2020 15:05:Kalina Owen RN) 49e. Infertility Treatment: No (01/04/2020 15:05:Miguelina Vanegas RN) 49f. Previous Cesareans: 0 (01/04/2020 15:05:Kalina Owen RN) Mother's Height 50b. Height Inches: 63 (01/14/2020 15:27:QS system process) Mother's Weight 51a. Pre- Weight (lbs): 179 (01/04/2020 15:05:Kalina Owen RN) 51b. Weight at Delivery (lbs): 244 (01/14/2020 15:27:QS system process) 52. Dt Last Normal Menses Began: 04/25/2019 00:00 (01/04/2020 15:05:Kalina Owen RN) Infections Present/Treated 53a. Gonorrhea: No (01/04/2020 15:05:Miguelina Vanegas RN) Results this Hospital Visit : Negative (01/04/2020 15:05:Kalina Owen RN) 53b. Syphilis: No (01/04/2020 15:05:Miguelina Vanegas RN) Results this Hospital Visit: NONREACTIVE (01/14/2020 15:19:QS system process) 53c. Chlamydia: No (01/04/2020 15:05:Miguelina Vanegas RN) Results this Hospital Visit: Negative (01/04/2020 15:05:Kalina Owen RN) 53d. Hepatitis B: No (01/04/2020 15:05:Miguelina Vanegas RN) Results this Hospital Visit: Negative (01/04/2020 15:05:Kalina Owen RN) 53e. Hepatitis C: Negative (01/04/2020 15:05:Kalina Owen RN) 53h. Mother Tested for HBsAG: Yes (01/04/2020 15:05:Kalina Owen RN) 53i. Date Tested: 07/26/2019 00:00 (01/04/2020 15:05:Kalina Owen RN) 53j. Test Result: Negative (01/04/2020 15:05:Kalina Owen RN) Obstetric Procedures 54a, b, c. Obstetric Procedures: Ultrasound; NST (01/04/2020 15:05:Kalina Owen RN) Cigarette Smoking Cigarette Smoking: Never Smoker. [id number] (01/04/2020 15:05:Miguelina Vanegas RN) 55a. 3 Months Before Preg - Ci (01/04/2020 15:05:Miguelina Vanegas RN) 55b. 1st Trimester of Preg- Ci (01/04/2020 15:05:Miguelina Vanegas RN) 55c. 2nd Trimester of Preg- Ci (01/04/2020 15:05:Miguelina Vanegas RN) 55d. 3rd Trimester of Preg- Ci (01/04/2020 15:05:Miguelina Vanegas RN) Onset of Labor 56a. PROM >12 Hrs: 0.02 (01/04/2020 15:05:QS system process) 57a. Induction of Labor: N/A (01/04/2020 15:05:Katherine Mohr RN) 57c. Non-Vertex Presentation A: Vertex (01/04/2020 15:05:Kalina Owen RN) 57d. Steroids - Lung Mat: Partial Course (01/04/2020 15:05:Katherine Mohr RN) 57d. Steroids - Lung Mat: Celestone 12mg IM - Dose 1 (01/14/2020 14:42:Елена Thurston RN) 57d. Steroids - Lung Mat: Imminent Delivery (01/04/2020 15:05:Katherine Mohr RN) 57f. Mat Ch[place] or Temp >100.4: 98.6 (01/04/2020 15:05:Susan Snow RN) 57g. Moderate/Heavy Meconium: Clear (01/04/2020 15:05:Katherine Mohr RN) 57h. Intolerance of Labor: Severe Pre-e, Unfavorable Cervix (01/04/2020 15:05:Katherine Mohr RN) 57i. Epidural/Spinal Anesthesia: None (01/04/2020 15:05:Katherine Mohr RN) Method of Delivery 58a. Forceps - Unsuccessful A: N/A (01/04/2020 15:05:Kalina Owen RN) 58b. Vacuum - Unsuccessful A: N/A (01/04/2020 15:05:Kalina Owen RN) 58c. Presentation at 58c. Presentation at - A : Vertex (01/04/2020 15:05:Kalina Owen RN) 58c. Presentation at - A : N/A (01/04/2020 15:05:Kalina Owen RN) 58c. Presentation at - A : Cephalic (01/04/2020 15:05:Kalina Owen RN) Final Route and Method of Del 58d. Baby A Route/Delivery: (01/04/2020 15:05:Kalina Owen RN) 58e. Trial of Labor Attempted: No (01/04/2020 15:05:Katherine Mohr RN) 58e. Trial of Labor Attempted A: N/A (01/04/2020 15:05:Kalina Owen RN) 58e. Trial of Labor Attempted B: N/A (01/04/2020 15:05:Katherine Mohr RN) Maternal Morbidity 59b. 3rd or 4th Degree Lacs: None (01/04/2020 15:05:Katherine Mohr RN) Birthweight Baby A: 4219 (01/04/2020 15:05:Octavia Hansen RN) 60a. Pounds : 9 (01/04/2020 15:05:QS system process) 60b. Ounces: 5 (01/04/2020 15:05:QS system process) 61. GA at Delivery Baby A: 36.2 (01/04/2020 15:05:Kalina Owen RN) : Late - 34- 36.6 Weeks (01/04/2020 15:05:QS system process) 62a. 5 Minute Baby A: 7 (01/04/2020 15:05:QS system process)
[2020-01-15 07:54] LABS: ALBUMIN 2.6 g/dL (3.5-5.0); ALKALINE PHOSPHATASE 172 U/L (38-126); ANION GAP 6 (5-19); ASPARTATE AMINO TRANSFERASE 30 U/L (14-36); BILIRUBIN,DIRECT 0.2 mg/dL (0.0-0.4); BILIRUBIN,TOTAL 0.6 mg/dL (0.2-1.3); BLOOD UREA NITROGEN 12 mg/dL (7-20); CALCIUM 8.3 mg/dL (8.4-10.2); CARBON DIOXIDE 19 mmol/L (22-30); CHLORIDE 107 mmol/L (98-107); GLUCOSE 106 mg/dL (75-110); TOTAL PROTEIN 4.9 g/dL (6.3-8.2); URIC ACID 7.5 mg/dL (2.5-6.2)
[2020-01-15 07:56] LABS: POTASSIUM 4.9 mmol/L (3.6-5.0)
[2020-01-15 08:04] LABS: HEMATOCRIT 31.9 % (36.0-47.0); HEMOGLOBIN 10.9 g/dL (12.0-15.5); MEAN CORPUSCULAR VOLUME 77 fl (80-97); PLATELET COUNT 163 10^3/uL (150-450); RED BLOOD COUNT 4.17 10^6/uL (3.72-5.28); RED CELL DISTRIBUTION WIDTH 15.1 % (11.5-14.0)
[2020-01-15 09:14] LABS: ABSOLUTE LYMPHOCYTES# (MANUAL) 0.8 10^3/uL (0.5-4.7); ABSOLUTE MONOCYTES # (MANUAL) 0.6 10^3/uL (0.1-1.4); BAND NEUTROPHILS % (MANUAL) 1 % (3-5); BASOPHILS % (MANUAL) 0 % (0-2); EOSINOPHILS % (MANUAL) 0 % (0-6); LYMPHOCYTES % (MANUAL) 4 % (13-45); MONOCYTES % (MANUAL) 3 % (3-13); SEGMENTED NEUTROPHILS % (MAN) 92 % (42-78); TOTAL CELLS COUNTED 100
[2020-01-15 09:21] LABS: BURR CELLS 1+; SCHISTOCYTES 1+
[2020-01-15 09:22] LABS: PLATELET COMMENT ADEQUATE; POIKILOCYTOSIS 1+
[2020-01-15 09:25] LABS: WHITE BLOOD COUNT 19.7 10^3/uL (4.0-10.5)
[2020-01-15] MEDS ORDERED: DOCUSATE SODIUM 100 MG CAPSULE ONE (10:02)
[2020-01-15] MEDS ORDERED: LABETALOL HCL 200 MG TABLET ONE (10:02)
[2020-01-15] MEDS ORDERED: PRENATAL VITAMIN W DHA CAPSULE PO ONE (10:02)
[2020-01-15] MEDS: PRENATAL VITAMIN W DHA CAPSULE PO SCH (10:05)
[2020-01-15] MEDS: DOCUSATE SODIUM 100 MG CAPSULE PO SCH ×2 (10:05→19:39)
[2020-01-15] MEDS: LABETALOL HCL 200 MG TABLET PO SCH ×2 (10:06→21:43)
[2020-01-15] MEDS: OXYCODONE-ACETAMINOPHEN 5-325 MG TABLET PO PRN ×2 (10:56→21:43)
[2020-01-16] MEDS: IBUPROFEN 800 MG TABLET PO SCH ×5 (02:59→23:19)
[2020-01-16] MEDS ORDERED: LEVOTHYROXINE SODIUM 0.05 MG TABLET ONE (05:33)
[2020-01-16] MEDS: LEVOTHYROXINE SODIUM 0.05 MG TABLET PO SCH (05:47)
[2020-01-16] MEDS ORDERED: INFLUENZA QUAD (6MOS+) 2020-21 VAC 0.5 ML SYR IM ONE (08:00)
[2020-01-16] MEDS: OXYCODONE-ACETAMINOPHEN 5-325 MG TABLET PO PRN ×4 (08:38→21:03)
[2020-01-16] MEDS: LABETALOL HCL 200 MG TABLET PO SCH ×2 (09:09→21:00)
[2020-01-16] MEDS: DOCUSATE SODIUM 100 MG CAPSULE PO SCH ×2 (09:10→17:00)
[2020-01-16] MEDS: PRENATAL VITAMIN W DHA CAPSULE PO SCH (09:10)
[2020-01-16 11:30] LABS: ABSOLUTE LYMPHOCYTES (AUTO) 1.7 10^3/uL (0.5-4.7); ABSOLUTE MONOCYTES (AUTO) 0.9 10^3/uL (0.1-1.4); ABSOLUTE NEUT (AUTO) 10.6 10^3/uL (1.7-8.2); BASOPHILS % (AUTO) 0.1 % (0-2); EOSINOPHILS % (AUTO) 0.1 % (0-6); HEMATOCRIT 26.9 % (36.0-47.0); LYMPHOCYTES % (AUTO) 12.6 % (13-45); MEAN CORPUSCULAR HEMOGLOBIN 25.8 pg (27.0-33.4); MEAN CORPUSCULAR HGB CONC 33.4 g/dL (32.0-36.0); MEAN CORPUSCULAR VOLUME 77 fl (80-97); MONOCYTES % (AUTO) 6.5 % (3-13); PLATELET COUNT 160 10^3/uL (150-450); RED BLOOD COUNT 3.48 10^6/uL (3.72-5.28); RED CELL DISTRIBUTION WIDTH 15.1 % (11.5-14.0); SEGMENTED NEUTROPHILS % (AUTO) 80.7 % (42-78); TOTAL CELLS COUNTED % (AUTO) 100 %; WHITE BLOOD COUNT 13.1 10^3/uL (4.0-10.5)
[2020-01-16] MEDS ORDERED: IRON SUCROSE COMPLEX INJ/PF 100 MG/5 ML SDV IV ONE (11:43)
[2020-01-16 11:52] LABS: ALBUMIN 2.3 g/dL (3.5-5.0); ALKALINE PHOSPHATASE 137 U/L (38-126); ANION GAP 6 (5-19); ASPARTATE AMINO TRANSFERASE 24 U/L (14-36); BILIRUBIN,DIRECT 0.1 mg/dL (0.0-0.4); BILIRUBIN,TOTAL 0.4 mg/dL (0.2-1.3); BLOOD UREA NITROGEN 18 mg/dL (7-20); CALCIUM 7.7 mg/dL (8.4-10.2); CARBON DIOXIDE 20 mmol/L (22-30); CHLORIDE 109 mmol/L (98-107); GLUCOSE 75 mg/dL (75-110); POTASSIUM 4.9 mmol/L (3.6-5.0); TOTAL PROTEIN 4.7 g/dL (6.3-8.2); URIC ACID 7.9 mg/dL (2.5-6.2)
--- NOTE | 2020-01-16 14:02 | PDOC PROGRESS REPORT ---
Subjective-OB Progress Note for:: 01/16/20 Subjective: 19yo G1 now P1 s/p Primary ppd 2. Ambulating, voiding, passing gas without difficulty. Reports pain well controlled with medication, feeling nauseous and light headed this am. Feels anxious and not ready to go home yet. Inquiring about starting anxiety medication, denies h/s ideation at this time just teary and anxious but does not feel ready to go see baby at [facility] yet. Baby doing well and they can check on her through online [email or web address] other daryl rns at this time. Physical Exam (OB) Vital Signs: Temp Pulse Resp BP Pulse Ox 97.8 F 76 20 141/81 H 100 01/16/20 08:00 01/16/20 07:31 01/16/20 07:31 01/16/20 07:31 01/16/20 07:31 Intake & Output 01/15/20 01/16/20 01/17/20 06:59 06:59 06:59 Intake Total 500 500 Output Total 1700 Balance 500 -1200 Weight 111.1 kg - General General Appearance: Appears well In distress: None - PIH/Pre-Eclampsia DTR's: 2 + Clonus: Negative Headache: Absent Epigastric Pain: No Visual Changes: No - Dressing Removed: No Incision: Well Approximated Closure Type: Surgical Glue - Maternal Morbidity 59. Maternal Morbidity (serious complications experinced by the mother associa santino with labor and delivery: None of the above - Lochia Lochia Amount: Scant < 10 ml Lochia Color: Rubra/Red - Abdomen Description: Tender, Soft, Round Hernia Present: No Fundal Description: Firm, Midline Fundal Height: u/u - u/2 - Respiratory Respiratory Status: No respiratory distress - Extremities Upper extremity: Edema Lower extremities: Edema - Neurological Cognition: Normal Orientation: AAOx4 - Psychological Associated symptoms: Normal affect, Normal mood Objective-Diagnostic Laboratory: 01/16/20 11:09 01/16/20 11:09 01/15/20 01/16/20 01/16/20 08:09 11:09 11:09 WBC 13.1 H RBC 3.48 L Hgb 9.0 L Hct 26.9 L MCV 77 L MCH 25.8 L MCHC 33.4 RDW 15.1 H Plt Count 160 Seg Neutrophils % 80.7 H Sodium 134.5 L Potassium 4.9 Chloride 109 H Carbon Dioxide 20 L Anion Gap 6 BUN 18 Creatinine 1.10 Est GFR ( Amer) > 60 Glucose 75 Uric Acid 7.9 H Calcium 7.7 L Total Bilirubin 0.4 AST 24 Alkaline Phosphatase 137 H Total Protein 4.7 L Albumin 2.3 L Blood Type O NEGATIVE Assessment and Plan(PN) - Assessment and Plan (1) Type 1 diabetes mellitus Qualifiers: Diabetes mellitus complication status: with hyperglycemia Qualified Code(s): E10.65 - Type 1 diabetes mellitus with hyperglycemia Is this a current diagnosis for this admission?: Yes Plan: glucose trending low this am, pt will call endocrine to adjust pump. Can send levels from [facility] in phone directly. Had Scheduled appt today. Dr Bundy is the LABORATORY ADMINISTRATIVE DIRECTOR front end loader operator today and aware of plan/status. (2) Acute blood loss anemia Is this a current diagnosis for this admission?: Yes Plan: IV iron ordered, pt agreeable (3) Rh negative status during Qualifiers: Trimester: third trimester Qualified Code(s): O26.893 - Other specified related conditions, third trimester; Z67.91 - Unspecified blood type, Rh negative Is this a current diagnosis for this admission?: Yes Plan: needs rhogam (4) Delivery by section Is this a current diagnosis for this admission?: Yes Plan: routine pp care (5) Pre-eclampsia affecting childbirth Is this a current diagnosis for this admission?: Yes Plan: bps well controlled with labetalol, labs redrawn based on results from yesterday. Continue to monitor for s/s of pre-e. Dr Bundy is the LABORATORY ADMINISTRATIVE DIRECTOR front end loader operator today and aware of plan/status. (6) Anxiety Is this a current diagnosis for this admission?: Yes Plan: Had long discussion with patient and regarding anxiety vs depression vs pp blues vs pp depression and the importance of bonding with baby. Will start po vistaril at this time per Dr. Bundy. - Time Spent with Patient Time with patient: 15-25 minutes Medications reviewed and adjusted accordingly: Yes - Disposition Anticipated Discharge Disposition: Home, Self Care Anticipated Discharge Timeframe: within 24 hours
[2020-01-16] MEDS ORDERED: HYDROXYZINE PAMOATE 50 MG CAPSULE PO PRN (14:50)
[2020-01-16] MEDS ORDERED: FUROSEMIDE INJ/PF 20 MG/2 ML SDV IV ONE (16:45)
[2020-01-17] MEDS: LEVOTHYROXINE SODIUM 0.05 MG TABLET PO SCH (05:21)
[2020-01-17] MEDS: IBUPROFEN 800 MG TABLET PO SCH ×4 (05:21→23:12)
[2020-01-17] MEDS ORDERED: GLUCAGON,HUMAN RECOMB 1 MG INJ ONE (08:40)
[2020-01-17] MEDS ORDERED: DEXTROSE 40% GEL 15 GM TUBE ONE (08:41)
[2020-01-17] MEDS ORDERED: LORAZEPAM INJ 2 MG/1 ML VIAL ONE (08:43)
[2020-01-17] MEDS ORDERED: DEXTROSE 50%-WATER 25 GM/50 ML DISP.SYRIN IV ONE ×2 (08:44→09:37)
[2020-01-17] MEDS ORDERED: DEXTROSE 40% GEL 15 GM TUBE PO ONE (09:39)
[2020-01-17 10:12] LABS: ABSOLUTE EOSINOPHILS # (AUTO) 0.2 10^3/uL (0.0-0.6); ABSOLUTE LYMPHOCYTES (AUTO) 1.8 10^3/uL (0.5-4.7); ABSOLUTE MONOCYTES (AUTO) 1.1 10^3/uL (0.1-1.4); ABSOLUTE NEUT (AUTO) 9.9 10^3/uL (1.7-8.2); BASOPHILS % (AUTO) 0.2 % (0-2); EOSINOPHILS % (AUTO) 1.5 % (0-6); HEMATOCRIT 29.2 % (36.0-47.0); HEMOGLOBIN 9.8 g/dL (12.0-15.5); LYMPHOCYTES % (AUTO) 13.6 % (13-45); MEAN CORPUSCULAR HGB CONC 33.4 g/dL (32.0-36.0); MEAN CORPUSCULAR VOLUME 78 fl (80-97); MONOCYTES % (AUTO) 8.2 % (3-13); PLATELET COUNT 210 10^3/uL (150-450); RED BLOOD COUNT 3.76 10^6/uL (3.72-5.28); RED CELL DISTRIBUTION WIDTH 15.8 % (11.5-14.0); SEGMENTED NEUTROPHILS % (AUTO) 76.5 % (42-78); TOTAL CELLS COUNTED % (AUTO) 100 %; WHITE BLOOD COUNT 12.9 10^3/uL (4.0-10.5)
[2020-01-17 10:16] LABS: ALBUMIN 2.5 g/dL (3.5-5.0); ALKALINE PHOSPHATASE 140 U/L (38-126); ANION GAP 7 (5-19); ASPARTATE AMINO TRANSFERASE 30 U/L (14-36); BILIRUBIN,DIRECT 0.1 mg/dL (0.0-0.4); BILIRUBIN,TOTAL 0.3 mg/dL (0.2-1.3); BLOOD UREA NITROGEN 16 mg/dL (7-20); CALCIUM 8.4 mg/dL (8.4-10.2); CARBON DIOXIDE 22 mmol/L (22-30); CHLORIDE 108 mmol/L (98-107); GLUCOSE 121 mg/dL (75-110); POTASSIUM 4.1 mmol/L (3.6-5.0); TOTAL PROTEIN 4.8 g/dL (6.3-8.2)
[2020-01-17] MEDS: LABETALOL HCL 200 MG TABLET PO SCH ×2 (10:53→21:09)
[2020-01-17] MEDS: PRENATAL VITAMIN W DHA CAPSULE PO SCH (10:53)
[2020-01-17] MEDS: DOCUSATE SODIUM 100 MG CAPSULE PO SCH ×2 (10:56→18:41)
--- NOTE | 2020-01-17 12:06 | Progress Note ---
Provider Note Provider Note: called in by RN for blood sugar 28. pt found unresponsive and diaphoretic. rapid response team called. IV started in right hand and D50 pushed by CNM. rapid response team in room and VSS. just after D50 given, blood sugar up and pt waking up. Before D50 was able to be given, significant other attempted to give po glucose and pt involuntarily bit his finger to the point of drawing blood.
--- NOTE | 2020-01-17 14:02 | PDOC CONSULTATION ---
Consultation Consult Date: 01/17/20 Provider Consulted: DONNA VARMA History of Present Illness Admission Date/PCP: 01/14/20 14:45 COLBY MCLAUGHLIN MD History of Present Illness: SEYMOUR GALVEZ is a 19 year old female with DM1 who delivered via at 36 weeks on 01/14/2020 due to severe preeclampsia. I responded to an DIRECTOR OF CUSTOMER ACQUISITION this morning which was called due to lethargy and hypoglycemia (BG in 20s). Upon my arrival, patient was receiving D50 via PIV. Shortly thereafter, she regained consciousness and repeat BG was >200. VS were within normal limits. Of note, she has an insulin pump and continuous glucose meter in place and has been managing her insulin independently throughout her hospital stay. She reports that she has had difficult to control glucose throughout her . She has had to steadily increase her basal insulin rate. She has had readings >300 and as low as 20 at home. She is followed by an hop strainer, Dr. Rubio, who has been peripherally following her insulin needs and DM1 manageme nt, but patient reports that she has been increasing her insulin rate independently. She reports that she was not aware that her insulin needs would change after delivery. On 01/16/2020, she required approximately 58 units of basal insulin and 20 units of bolus (per pump readings). This morning, she felt that she was in her usual state of health and did not notice any symptoms of hypoglycemia. Her suddenly found her lethargic and, due to inability to wake her, he called her nurse. DIRECTOR OF CUSTOMER ACQUISITION was subsequently called. She had no witnessed seizure like activity. Past Medical History Cardiac Medical History: Reports: None Pulmonary Medical History: Reports: None EENT Medical History: Reports: None Neurological Medical History: Reports: None Endocrine Medical History: Reports: Diabetes Mellitus Type 1, Hypothyroidism Renal/ Medical History: Reports: None Malignancy Medical History: Reports: None GI Medical History: Reports: None Musculoskeltal Medical History: Reports: None Skin Medical History: Reports: None Psychiatric Medical History: Denies: Depression Hematology: Reports: None Infectious Medical History: Reports: None Past Surgical History Past Surgical History: Reports: Section Social History Information Source: Patient Lives with: Family Smoking Status: Never Smoker Family History Family History: Reviewed & Not Pertinent Parental Family History Reviewed: Yes Children Family History Reviewed: Yes Sibling(s) Family History Reviewed.: Yes Medication/Allergy Home Medications: Insulin Aspart [Novolog Insulin 100 Unit/1 ml 10 ml] 200 unit SQ ASDIR #20 ml 11/22/17 Aspirin 81 mg PO DAILY 01/04/20 Levothyroxine Sodium [Synthroid 0.05 mg Tablet] 0.05 mg PO DAILY 01/04/20 Vits96/Iron Fum/Folic [ Tablet] 1 each PO DAILY 01/04/20 Allergies/Adverse Reactions: amoxicillin Allergy (Intermediate, Verified 01/14/20 14:15) cefprozil Allergy (Intermediate, Verified 01/14/20 14:15) clavulanic acid [From Augmentin] Allergy (Intermediate, Verified 01/14/20 14:15) azithromycin [From Zithromax] Allergy (Verified 01/14/20 14:15) Review of Systems All systems: reviewed and no additional remarkable complaints except as stated - exhaustion Physical Exam Vital Signs: Temp Pulse Resp BP Pulse Ox 97.3 F 86 18 143/66 H 95 01/17/20 07:30 01/17/20 07:30 01/17/20 07:30 01/17/20 07:30 01/17/20 07:30 Intake & Output 01/16/20 01/17/20 01/18/20 06:59 06:59 06:59 Intake Total 500 2200 200 Output Total 1700 Balance -1200 2200 200 General appearance: PRESENT: no acute distress, cooperative Eye exam: ABSENT: scleral icterus Mouth exam: PRESENT: moist Throat exam: ABSENT: post pharyngeal erythema Neck exam: ABSENT: JVD Respiratory exam: PRESENT: clear to auscultation danii, unlabored Cardiovascular exam: PRESENT: RRR GI/Abdominal exam: PRESENT: normal bowel sounds, soft, other - scar does not appear purulent/erythematous. ABSENT: tenderness Rectal exam: PRESENT: deferred Extremities exam: PRESENT: +1 edema Musculoskeletal exam: PRESENT: normal inspection Neurological exam: PRESENT: alert, awake, oriented to person, oriented to place, oriented to time, oriented to situation Psychiatric exam: PRESENT: appropriate affect Skin exam: ABSENT: jaundice, rash Results Laboratory Results: 01/17/20 08:58 01/17/20 08:58 01/16/20 01/16/20 01/17/20 11:09 11:09 08:58 WBC 13.1 H 12.9 H RBC 3.48 L 3.76 Hgb 9.0 L 9.8 L Hct 26.9 L 29.2 L MCV 77 L 78 L MCH 25.8 L 26.0 L MCHC 33.4 33.4 RDW 15.1 H 15.8 H Plt Count 160 210 Seg Neutrophils % 80.7 H 76.5 Sodium 134.5 L Potassium 4.9 Chloride 109 H Carbon Dioxide 20 L Anion Gap 6 BUN 18 Creatinine 1.10 Est GFR ( Amer) > 60 Glucose 75 Uric Acid 7.9 H Calcium 7.7 L Total Bilirubin 0.4 AST 24 Alkaline Phosphatase 137 H Total Protein 4.7 L Albumin 2.3 L 01/17/20 08:58 WBC RBC Hgb Hct MCV MCH MCHC RDW Plt Count Seg Neutrophils % Sodium 136.9 L Potassium 4.1 Chloride 108 H Carbon Dioxide 22 Anion Gap 7 BUN 16 Creatinine 0.88 Est GFR ( Amer) > 60 Glucose 121 H Uric Acid Calcium 8.4 Total Bilirubin 0.3 AST 30 Alkaline Phosphatase 140 H Total Protein 4.8 L Albumin 2.5 L Assessment and Plan - Diagnosis (1) Type 1 diabetes mellitus Qualifiers: Diabetes mellitus complication status: with hypoglycemia Diabetes mellitus complication detail: without coma Qualified Code(s): E10.649 - Type 1 diabetes mellitus with hypoglycemia without coma Is this a current diagnosis for this admission?: Yes (2) Hypoglycemia due to insulin Is this a current diagnosis for this admission?: Yes (3) Acute blood loss anemia Is this a current diagnosis for this admission?: Yes (4) Delivery by section Is this a current diagnosis for this admission?: Yes (5) Pre-eclampsia affecting childbirth Is this a current diagnosis for this admission?: Yes - Plan Summary Summary: DM1 complicated by hypo- and hyperglycemia -I contacted her hop strainer, Dr. Rubio ([phone]), who has made recommendations to decrease her basal insulin dosing by about 30% -the patient and I re-programmed her insulin pump together for the settings (12- 3 am: 1.35 u/hr, 3am-12pm: 1.65, 12-6pm: 2.15, 6pm-12am: 1.9) recommended by her hop strainer (these are similar to her pre- settings) -I advised the patient to replace her insulin pump and recheck her BG Q1H x3 to ensure that she does not have extremely high or low glucose readings (she just received D50, so I anticipate that she will be somewhat hyperglycemic) -she was counseled that she is taking labetalol for treatment of high BP, and this has the potential to mask the symptoms of hypoglycemia (tremor, palpitations) and that she needs to monitor her glucose more closely as a result -she will follow up with her hop strainer in 1-2 weeks to review her glucose and insulin settings (discussed with patient and Dr. Rubio) Please feel free to contact me with any questions or concerns. >30 minutes of critical care time spent in the care of this patient (during DIRECTOR OF CUSTOMER ACQUISITION) - Time Time Spent with patient: 35 or more minutes Anticipated Discharge Disposition: Home, Self Care Anticipated Discharge Timeframe: within 24 hours
[2020-01-17] MEDS ORDERED: LABETALOL HCL INJ 20 MG/4 ML DISP.SYRIN IV ONE ×2 (16:30→16:56)
--- NOTE | 2020-01-17 16:39 | PDOC PROGRESS REPORT ---
Subjective-OB Progress Note for:: 01/17/20 Subjective: see note from hypoglycemic episode this morning. pt okay with staying a extra day for BP mgt and blood sugar mgt by hospitalist who is cooperating with dr Rubio (her loader operator/ground leader). Physical Exam (OB) Vital Signs: Temp Pulse Resp BP Pulse Ox 97.2 F 68 18 153/84 H 99 01/17/20 11:29 01/17/20 11:29 01/17/20 11:29 01/17/20 11:29 01/17/20 11:29 Intake & Output 01/16/20 01/17/20 01/18/20 06:59 06:59 06:59 Intake Total 500 2200 400 Output Total 1700 Balance -1200 2200 400 - Dressing Removed: Yes Incision: Open Closure Type: Surgical Glue - Maternal Morbidity 59. Maternal Morbidity (serious complications experinced by the mother associated with labor and delivery: None of the above - Abdomen Description: Soft Hernia Present: No Fundal Description: Firm, Midline Fundal Height: u/u - u/2 - Abdominal Distension: No distension - Extremities Lower extremities: Conchita's sign - neg Calf: Other - edematous Objective-Diagnostic Laboratory: 01/17/20 08:58 01/17/20 08:58 01/17/20 01/17/20 08:58 08:58 WBC 12.9 H RBC 3.76 Hgb 9.8 L Hct 29.2 L MCV 78 L MCH 26.0 L MCHC 33.4 RDW 15.8 H Plt Count 210 Seg Neutrophils % 76.5 Sodium 136.9 L Potassium 4.1 Chloride 108 H Carbon Dioxide 22 Anion Gap 7 BUN 16 Creatinine 0.88 Est GFR ( Amer) > 60 Glucose 121 H Calcium 8.4 Total Bilirubin 0.3 AST 30 Alkaline Phosphatase 140 H Total Protein 4.8 L Albumin 2.5 L Assessment and Plan(PN) - Assessment and Plan (1) Acute blood loss anemia Is this a current diagnosis for this admission?: Yes (2) Delivery by section Is this a current diagnosis for this admission?: Yes (3) Hypoglycemia due to insulin Is this a current diagnosis for this admission?: Yes (4) Pre-eclampsia affecting childbirth Is this a current diagnosis for this admission?: Yes (5) Rh negative status during Qualifiers: Trimester: third trimester Qualified Code(s): O26.893 - Other specified related conditions, third trimester; Z67.91 - Unspecified blood type, Rh negative Is this a current diagnosis for this admission?: Yes (6) Type 1 diabetes mellitus Qualifiers: Diabetes mellitus complication status: with hypoglycemia Diabetes mellitus complication detail: without coma Qualified Code(s): E10.649 - Type 1 diabetes mellitus with hypoglycemia without coma Is this a current diagnosis for this admission?: Yes - Time Spent with Patient Time with patient: Greater than 35 minutes - throughout the day with multiple visits to discuss and coordinate her care Medications reviewed and adjusted accordingly: Yes - Disposition Anticipated Discharge Disposition: Home, Self Care Anticipated Discharge Timeframe: within 24 hours - for now, changes to her BP meds. c/w dr strange
[2020-01-17] MEDS ORDERED: DEXTROSE 50%-WATER 25 GM/50 ML DISP.SYRIN IV PRN ×2 (16:44)
[2020-01-17] MEDS ORDERED: DEXTROSE 40% GEL 15 GM TUBE PO PRN ×2 (16:44)
[2020-01-17] MEDS ORDERED: GLUCAGON,HUMAN RECOMB 1 MG INJ IM PRN (16:44)
[2020-01-17] MEDS: OXYCODONE-ACETAMINOPHEN 5-325 MG TABLET PO PRN (16:44)
[2020-01-17] MEDS ORDERED: NIFEDIPINE 30 MG TAB.ER.24 PO ONE (16:56)
[2020-01-17] MEDS: NIFEDIPINE 30 MG TAB.ER.24 PO SCH (16:58)
[2020-01-18] MEDS: LEVOTHYROXINE SODIUM 0.05 MG TABLET PO SCH (05:31)
[2020-01-18] MEDS: IBUPROFEN 800 MG TABLET PO SCH ×2 (05:31→12:54)
[2020-01-18 08:44] LABS: ANION GAP 6 (5-19); BLOOD UREA NITROGEN 13 mg/dL (7-20); CALCIUM 8.4 mg/dL (8.4-10.2); CARBON DIOXIDE 24 mmol/L (22-30); CHLORIDE 107 mmol/L (98-107); GLUCOSE 76 mg/dL (75-110); POTASSIUM 4.3 mmol/L (3.6-5.0)
[2020-01-18] MEDS: OXYCODONE-ACETAMINOPHEN 5-325 MG TABLET PO PRN (09:44)
[2020-01-18] MEDS: PRENATAL VITAMIN W DHA CAPSULE PO SCH (09:44)
[2020-01-18] MEDS: LABETALOL HCL 200 MG TABLET PO SCH (09:45)
[2020-01-18] MEDS: NIFEDIPINE 30 MG TAB.ER.24 PO SCH (09:45)
[2020-01-18] MEDS: DOCUSATE SODIUM 100 MG CAPSULE PO SCH (09:46)
--- NOTE | 2020-01-18 10:06 | PDOC DISCHARGE SUMMARY ---
Impression - Admit/DC Date/PCP Admission Date/Primary Care Provider: 01/14/20 14:45 COLBY MCLAUGHLIN MD Discharge Date: 01/18/20 - Discharge Diagnosis (1) Acute blood loss anemia Is this a current diagnosis for this admission?: Yes (2) Anxiety Is this a current diagnosis for this admission?: Yes (3) Delivery by section Is this a current diagnosis for this admission?: Yes (4) Hypoglycemia due to insulin Is this a current diagnosis for this admission?: Yes (5) Insulin dependent diabetes mellitus Is this a current diagnosis for this admission?: Yes (6) Pre-eclampsia affecting childbirth Is this a current diagnosis for this admission?: Yes (7) Rh negative status during Is this a current diagnosis for this admission?: Yes (8) Type 1 diabetes mellitus Is this a current diagnosis for this admission?: Yes - Assessment Summary: DM1 complicated by hypo- and hyperglycemia -I contacted her casing machine operator, Dr. Rubio ([phone]), who has made recommendations to decrease her basal insulin dosing by about 30% -the patient and I re-programmed her insulin pump together for the settings (12- 3 am: 1.35 u/hr, 3am-12pm: 1.65, 12-6pm: 2.15, 6pm-12am: 1.9) recommended by her casing machine operator (these are similar to her pre- settings) -I advised the patient to replace her insulin pump and recheck her BG Q1H x3 to ensure that she does not have extremely high or low glucose readings (she just received D50, so I anticipate that she will be somewhat hyperglycemic) -she was counseled that she is taking labetalol for treatment of high BP, and this has the potential to mask the symptoms of hypoglycemia (tremor, palpitations) and that she needs to monitor her glucose more closely as a result -she will follow up with her casing machine operator in 1-2 weeks to review her glucose and insulin settings (discussed with patient and Dr. Rubio) Please feel free to contact me with any questions or concerns. >30 minutes of critical care time spent in the care of this patient (during COAT OPERATOR INSULATOR) - Additional Information Resuscitation Status: Full Code Discharge Diet: Regular Discharge Activity: Balance Activity w/Rest, No Lifting Over 10 Pounds, No Lifting/Push/Pulling, Pelvic Rest, No tub bath Referrals: COLBY MCLAUGHLIN MD [Primary Care Provider] - Prescriptions: Oxycodone HCl/Acetaminophen [Percocet 5-325 mg Tablet] 1 tab PO Q4HP PRN #30 tablet PRN Reason: For Pain Scale 3-5 Ibuprofen [Motrin 800 mg Tablet] 800 mg PO Q8HP PRN #60 tablet PRN Reason: Labetalol HCl [Normodyne 200 mg Tablet] 200 mg PO Q12 #30 tablet Nifedipine [Procardia XL 30 mg Tablet] 30 mg PO DAILY #30 tab.er.24 Home Medications: Insulin Aspart [Novolog Insulin (Aspart) 100 unit/mL] 200 unit SQ ASDIR #20 ml 11/22/17 Levothyroxine Sodium [Synthroid 0.05 mg Tablet] 0.05 mg PO DAILY 01/04/20 Vits96/Iron Fum/Folic [ Tablet] 1 each PO DAILY 01/04/20 Ibuprofen [Motrin 800 mg Tablet] 800 mg PO Q8HP PRN #60 tablet 01/18/20 Labetalol HCl [Normodyne 200 mg Tablet] 200 mg PO Q12 #30 tablet 01/18/20 Nifedipine [Procardia XL 30 mg Tablet] 30 mg PO DAILY #30 tab.er.24 01/18/20 Oxycodone HCl/Acetaminophen [Percocet 5-325 mg Tablet] 1 tab PO Q4HP PRN #30 tablet 01/18/20 HPI Gestational Age: 36.2 Reason(s) for Admission: Ceasarean Section-Primary, Medical Complications, Obstetric Complications Procedures: NST Intrapartum Procedure(s): : Low Cervical, Transverse Hospital Course 59. Maternal Morbidity (serious complications experinced by the mother associated with labor and delivery: None of the above Results Laboratory Results: WBC 12.9 10^3/uL (4.0-10.5) H 01/17/20 08:58 RBC 3.76 10^6/uL (3.72-5.28) 01/17/20 08:58 Hgb 9.8 g/dL (12.0-15.5) L 01/17/20 08:58 Hct 29.2 % (36.0-47.0) L 01/17/20 08:58 MCV 78 fl (80-97) L 01/17/20 08:58 MCH 26.0 pg (27.0-33.4) L 01/17/20 08:58 MCHC 33.4 g/dL (32.0-36.0) 01/17/20 08:58 RDW 15.8 % (11.5-14.0) H 01/17/20 08:58 Plt Count 210 10^3/uL (150-450) 01/17/20 08:58 Lymph % (Auto) 13.6 % (13-45) 01/17/20 08:58 [place] % (Auto) 8.2 % (3-13) 01/17/20 08:58 Eos % (Auto) 1.5 % (0-6) 01/17/20 08:58 Baso % (Auto) 0.2 % (0-2) 01/17/20 08:58 Absolute Neuts (auto) 9.9 10^3/uL (1.7-8.2) H 01/17/20 08:58 Absolute Lymphs (auto) 1.8 10^3/uL (0.5-4.7) 01/17/20 08:58 Absolute Monos (auto) 1.1 10^3/uL (0.1-1.4) 01/17/20 08:58 Absolute Eos (auto) 0.2 10^3/uL (0.0-0.6) 01/17/20 08:58 Absolute Basos (auto) 0.0 10^3/uL (0.0-0.2) 01/17/20 08:58 Total Counted 100 01/15/20 07:17 Seg Neutrophils % 76.5 % (42-78) 01/17/20 08:58 Seg Neuts % (Manual) 92 % (42-78) H 01/15/20 07:17 Band Neutrophils % 1 % (3-5) L 01/15/20 07:17 Lymphocytes % (Manual) 4 % (13-45) L 01/15/20 07:17 Monocytes % (Manual) 3 % (3-13) 01/15/20 07:17 Eosinophils % (Manual) 0 % (0-6) 01/15/20 07:17 Basophils % (Manual) 0 % (0-2) 01/15/20 07:17 Abs Neuts (Manual) 18.3 10^3/uL (1.7-8.2) H 01/15/20 07:17 Abs Lymphs (Manual) 0.8 10^3/uL (0.5-4.7) 01/15/20 07:17 Abs Monocytes (Manual) 0.6 10^3/uL (0.1-1.4) 01/15/20 07:17 Absolute Eos (Manual) 0.0 10^3/uL (0.0-0.6) 01/15/20 07:17 Abs Basophils (Manual) 0.0 10^3/uL (0.0-0.2) 01/15/20 07:17 Platelet Comment ADEQUATE 01/15/20 07:17 Poikilocytosis 1+ 01/15/20 07:17 Pippa Cells 1+ 01/15/20 07:17 Schistocytes 1+ 01/15/20 07:17 Sodium 137.0 mmol/L (137-145) 01/18/20 07:40 Potassium 4.3 mmol/L (3.6-5.0) 01/18/20 07:40 Chloride 107 mmol/L (98-107) 01/18/20 07:40 Carbon Dioxide 24 mmol/L (22-30) 01/18/20 07:40 Anion Gap 6 (5-19) 01/18/20 07:40 BUN 13 mg/dL (7-20) 01/18/20 07:40 Creatinine 0.73 mg/dL (0.52-1.25) 01/18/20 07:40 Est GFR ( Amer) > 60 (>60) 01/18/20 07:40 Est GFR (MDRD) Non-Af > 60 (>60) 01/18/20 07:40 Glucose 76 mg/dL (75-110) 01/18/20 07:40 POC Glucose 158 mg/dL (70-110) H 01/18/20 00:54 Uric Acid 7.9 mg/dL (2.5-6.2) H 01/16/20 11:09 Calcium 8.4 mg/dL (8.4-10.2) 01/18/20 07:40 Total Bilirubin 0.3 mg/dL (0.2-1.3) 01/17/20 08:58 Direct Bilirubin 0.1 mg/dL (0.0-0.4) 01/17/20 08:58 Neonat Total Bilirubin Not Reportable 01/17/20 08:58 Neonat Direct Bilirubin Not Reportable 01/17/20 08:58 Neonat Indirect Bili Not Reportable 01/17/20 08:58 AST 30 U/L (14-36) 01/17/20 08:58 ALT 14 U/L (<35) 01/17/20 08:58 Alkaline Phosphatase 140 U/L (38-126) H 01/17/20 08:58 Lactate Dehydrogenase 352 U/L (120-246) H 01/16/20 11:09 Total Protein 4.8 g/dL (6.3-8.2) L 01/17/20 08:58 Albumin 2.5 g/dL (3.5-5.0) L 01/17/20 08:58 Urine Color DONALD 01/14/20 14:13 Urine Appearance SLIGHTLY-CLOUDY 01/14/20 14:13 Urine pH 6.0 (5.0-9.0) 01/14/20 14:13 Ur Specific [place] 1.026 01/14/20 14:13 Urine Protein >=500 mg/dL (NEGATIVE) H 01/14/20 14:13 Urine Glucose (UA) NEGATIVE mg/dL (NEGATIVE) 01/14/20 14:13 Urine Ketones NEGATIVE mg/dL (NEGATIVE) 01/14/20 14:13 Urine Blood NEGATIVE (NEGATIVE) 01/14/20 14:13 Urine Nitrite NEGATIVE (NEGATIVE) 01/14/20 14:13 Urine Bilirubin NEGATIVE (NEGATIVE) 01/14/20 14:13 Urine Urobilinogen 2.0 mg/dL (<2.0) H 01/14/20 14:13 Ur Leukocyte Esterase NEGATIVE (NEGATIVE) 01/14/20 14:13 Urine Ascorbic Acid NEGATIVE (NEGATIVE) 01/14/20 14:13 Urine Opiates Screen NEGATIVE 01/14/20 14:13 Urine Methadone Screen NEGATIVE 01/14/20 14:13 Ur Barbiturates Screen NEGATIVE 01/14/20 14:13 Ur Phencyclidine Scrn NEGATIVE 01/14/20 14:13 Ur Amphetamines Screen NEGATIVE 01/14/20 14:13 U Benzodiazepines Scrn NEGATIVE 01/14/20 14:13 Urine Cocaine Screen NEGATIVE 01/14/20 14:13 U Marijuana (THC) Screen NEGATIVE 01/14/20 14:13 RPR NONREACTIVE (NONREACTIVE) 01/14/20 15:19 Blood Type O NEGATIVE 01/15/20 08:09 Antibody Screen POSITIVE 01/14/20 15:19 Antibody Identification RHOGAM INDUCED ANTI-D 01/14/20 15:19 Screen NEGATIVE 01/15/20 08:09 Rhogam Indicated Cancelled 01/15/20 08:09 Crossmatch See Detail 01/14/20 15:19 Plan Plan of Treatment: f/u at [facility] on Tuesday for incision check and bp check Time Spent: Less than 30 Minutes
--- NOTE | 2020-01-18 12:12 | PDOC PROGRESS REPORT ---
Subjective Progress Note for:: 01/18/20 Subjective:: NAEO Reason For Visit: PRE-ECLAMPSIA, Physical Exam Vital Signs: Temp Pulse Resp BP Pulse Ox 98.3 F 93 17 160/80 H 100 01/18/20 08:00 01/18/20 08:00 01/18/20 08:00 01/18/20 08:00 01/18/20 08:00 Intake & Output 01/17/20 01/18/20 01/19/20 06:59 06:59 06:59 Intake Total 2200 2800 Balance 2200 2800 General appearance: PRESENT: no acute distress, cooperative Eye exam: ABSENT: scleral icterus Mouth exam: PRESENT: moist Throat exam: ABSENT: post pharyngeal erythema Neck exam: ABSENT: JVD Respiratory exam: PRESENT: clear to auscultation danii Cardiovascular exam: PRESENT: RRR GI/Abdominal exam: PRESENT: normal bowel sounds Extremities exam: PRESENT: pedal edema Musculoskeletal exam: PRESENT: ambulatory Neurological exam: PRESENT: alert, awake, oriented to person, oriented to place, oriented to time, oriented to situation Psychiatric exam: PRESENT: appropriate affect Skin exam: ABSENT: jaundice, rash Results Laboratory Results: 01/17/20 08:58 01/18/20 07:40 01/18/20 07:40 Sodium 137.0 Potassium 4.3 Chloride 107 Carbon Dioxide 24 Anion Gap 6 BUN 13 Creatinine 0.73 Est GFR ( Amer) > 60 Glucose 76 Calcium 8.4 Assessment and Plan - Diagnosis (1) Type 1 diabetes mellitus Qualifiers: Diabetes mellitus complication status: with hypoglycemia Diabetes mellitus complication detail: without coma Qualified Code(s): E10.649 - Type 1 diabetes mellitus with hypoglycemia without coma Is this a current diagnosis for this admission?: Yes (2) Hypoglycemia due to insulin Is this a current diagnosis for this admission?: Yes (3) Acute blood loss anemia Is this a current diagnosis for this admission?: Yes (4) Delivery by section Is this a current diagnosis for this admission?: Yes (5) Pre-eclampsia affecting childbirth Is this a current diagnosis for this admission?: Yes - Plan Summary Summary: DM1 complicated by hypo- and hyperglycemia -I contacted her refrigerator mover, Dr. Rubio ([phone]), who has made recommendations to decrease her basal insulin dosing by about 30% -the patient and I re-programmed her insulin pump together for the settings (12- 3 am: 1.35 u/hr, 3am-12pm: 1.65, 12-6pm: 2.15, 6pm-12am: 1.9) recommended by her refrigerator mover (these are similar to her pre- settings) -she was counseled that she is taking labetalol for treatment of high BP, and this has the potential to mask the symptoms of hypoglycemia (tremor, palpitations) and that she needs to monitor her glucose more closely as a result -she will follow up with her refrigerator mover in 1-2 weeks to review her glucose and insulin settings (discussed with patient and Dr. Rubio) -blood sugar values have remained within normal limits since above changes were made yesterday and she is now safe for discharge from my point of view I will sign off. Please contact me with any questions. - Time Time Spent with patient: 25-34 minutes Anticipated Discharge Disposition: Home, Self Care Anticipated Discharge Timeframe: within 24 hours
[2020-01-18 14:14] VITALS: BP 138/72
== END 2020-01-18 15:57 | disposition home or self-care (01) | DRG 787 ==
LOC: LC 14:04 → LR 14:45 → 2S 01-15 18:00
PROVIDERS: ADMIT Obstetrics & Gynecology Gynecology; ATTEND Obstetrics & Gynecology Gynecology
PROC: 10D00Z1 Extraction of Products of Conception, Low, Open Approach (ICD-10-PCS; principal; 2020-01-14)
PROC: 3E0334Z Introduction of Serum, Toxoid and Vaccine into Peripheral Vein, Percutaneous Approach (ICD-10-PCS; 2020-01-15)
PROC: 3E02340 Introduction of Influenza Vaccine into Muscle, Percutaneous Approach (ICD-10-PCS; 2020-01-18)
DX: O14.14 Severe pre-eclampsia complicating childbirth (principal); D62 Acute posthemorrhagic anemia; O14.94 Unspecified pre-eclampsia, complicating childbirth; O26.893 Other specified pregnancy related conditions, third trimester; Z67.41 Type O blood, Rh negative; Z20.828 Contact with and (suspected) exposure to other viral communicable diseases; O90.81 Anemia of the puerperium; O99.343 Other mental disorders complicating pregnancy, third trimester; F41.9 Anxiety disorder, unspecified; O24.013 Pre-existing type 1 diabetes mellitus, in pregnancy, third trimester; E10.649 Type 1 diabetes mellitus with hypoglycemia without coma; O99.284 Endocrine, nutritional and metabolic diseases complicating childbirth; E03.9 Hypothyroidism, unspecified; E10.65 Type 1 diabetes mellitus with hyperglycemia; Z96.41 Presence of insulin pump (external) (internal); Z23 Encounter for immunization; Z79.82 Long term (current) use of aspirin; Z88.1 Allergy status to other antibiotic agents; Z3A.36 36 weeks gestation of pregnancy; Z37.0 Single live birth
CPT/HCPCS: 1961; 36415; 80048; 80053; 80307; 81005; 82962; 83615; 84550; 85025; 85461; 86592; 86850; 86870; 86900; 86901; 86920; 86922; 90471; 90686; 94799; G0008; J0131; J0360; J0690; J0702; J1200; J1756; J1885; J1940; J2175; J2250; J2370; J2405; J2590; J2790; J3370; J3475; J3490